=== PATIENT | female | born 1985 | race Caucasian/White ===

== ENCOUNTER → 2017-11-04 09:37 | Outpatient (CLI) | payer OTHER, SELFPAY ==
[2017-11-04 12:09] LABS: Absolute Lymphocyte Count 1.63 X10^3/ul (0.83-4.51); Absolute Neutrophil Count 4.2 X10^3/uL (2.0-7.7); Basophil# 0.03 X10^3/uL; Basophil% 0.5 % (0-1); Eosinophil# 0.13 X10^3/uL; Hematocrit 43.7 % (37-47); Hemoglobin 14.3 g/dl (12.0-15.0); Lymphocyte # 1.63 X10^3/ul (4.0); Lymphocyte % 25.4 % (19-41); Mean Corp Hgb Conc 32.7 g/gl (32-36); Mean Corpuscular Hgb 29.2 pg (27.0-32.0); Mean Corpuscular Volume 89.2 fL (81-99); Mean Platelet Vol. 10.8 fl (6.2-12.0); Monocyte# 0.47 X10^3/uL; Monocyte% 7.3 % (0-10); Neutrophil # 4.15 X10^3/uL (2.7-7.7); Neutrophil % 64.6 % (47-70); Platelet Count 226 K/mm3 (150-450); RBC Distribution Width CV 12.4 % (11.6-14.6); White Blood Count 6.4 K/mm3 (4.4-11.0)
[2017-11-04 12:24] LABS: POSITIVE COUNT NO; POSITIVE DIFFERENTIAL NO; POSITIVE MORPHOLOGY NO
[2017-11-04 12:27] LABS: Erythrocyte Sedimentation Rate 8 mm/hr (0-20)
[2017-11-04 12:56] LABS: ALB/GLOB Ratio 1.1 RATIO (0.9-2.4); AST(SGOT) 27 U/L (15-37); Alanine Aminotransfer ALT/SGPT 38 U/L (13-56); Albumin, Serum 3.8 g/dL (3.2-5.0); Alkaline Phosphatase 75 U/L (45-117); Anion Gap 7 (5-15); BUN 13 mg/dL (7-18); BUN/Creat Ratio 18.2 RATIO (10-20); CRP 4.84 mg/L (0.0-3.0); Calcium,Total 8.8 mg/dL (8.5-10.1); Chloride 107 mmol/L (98-107); Creatinine, Serum 0.71 mg/dL (0.55-1.02); EST Glomerular Filtration Rate 101 mL/min (>60); Est Glom Filt Rate - Afr Amer 122 mL/min (>60); Free T3 2.6 pg/mL (2.18-3.98); Globulin 3.6 g/dL (2.2-4.2); Glucose 89 mg/dL (74-106); Iron 71 ug/dL (50-170); Potassium 4.1 mmol/L (3.5-5.1); Protein, Total 7.4 g/dL (6.4-8.2); Rheumatoid Factor < 10.0 IU/mL (<15); Sodium Level 140 mmol/L (136-145); T4 Free Direct 1.01 ng/dL (0.76-1.46); Thyroid Stim Hormone (TSH) 1.59 uIU/mL (0.358-3.74)
[2017-11-05 07:59] LABS: Thyroid Peroxidase AB 18 IU/mL (0-34)
[2017-11-05 10:29] LABS: Vitamin B12 880 pg/mL (211-911); Vitamin D,25 Hydroxy 16.1 ng/mL (19.95-100.01)
[2017-11-06 16:03] LABS: ANTINUCLEAR ANTIBODIES DIRECT Negative (Negative)
== END ==
PROVIDERS: Family Provider Family Medicine; PCP Family Medicine; Visit Provider Family Medicine
DX: K90.0 Celiac disease (principal); R53.83 Other fatigue
CPT/HCPCS: 36415; 80053; 82306; 82607; 83540; 84439; 84443; 84481; 85025; 85652; 86038; 86140; 86376; 86431

== ENCOUNTER → 2018-01-29 09:27 | Outpatient (CLI) | payer OTHER, SELFPAY ==
[2018-01-29 10:19] LABS: CRP 3.91 mg/L (0.0-3.0)
[2018-01-30 09:02] LABS: Vitamin D,25 Hydroxy 45.3 ng/mL (29.95-100.01)
== END ==
PROVIDERS: Family Provider Family Medicine; PCP Family Medicine; Visit Provider Family Medicine
DX: E55.9 Vitamin D deficiency, unspecified (principal); K90.0 Celiac disease
CPT/HCPCS: 36415; 82306; 86140

== ENCOUNTER → 2018-07-18 11:06 | Outpatient (CLI) | payer OTHER, SELFPAY ==
[2018-07-18 12:43] LABS: Anion Gap 7 (5-15); BUN 9 mg/dL (7-18); BUN/Creat Ratio 12.7 RATIO (10-20); CRP 3.32 mg/L (0.0-3.0); Calcium,Total 8.5 mg/dL (8.5-10.1); Chloride 106 mmol/L (98-107); Cholesterol 173 mg/dL (200); Creatinine, Serum 0.71 mg/dL (0.55-1.02); EST Glomerular Filtration Rate 102 mL/min (>60); Est Glom Filt Rate - Afr Amer 123 mL/min (>60); Glucose 86 mg/dL (74-106); High Density Lipoprotein 53 mg/dL; Potassium 3.8 mmol/L (3.5-5.1); Sodium Level 140 mmol/L (136-145); Triglycerides 69 mg/dL; Very Low Density Lipoprotein 14 mg/dL (5-40)
[2018-07-18 12:51] LABS: Vitamin D,25 Hydroxy 24.4 ng/mL (29.95-100.01)
[2018-07-18 19:11] LABS: Xtra Tube EP Lab EXTRA TUBE
== END ==
PROVIDERS: Family Provider Family Medicine; PCP Family Medicine; Referring Provider Family Medicine; Visit Provider Family Medicine
DX: K90.0 Celiac disease (principal); E66.3 Overweight; E55.9 Vitamin D deficiency, unspecified
CPT/HCPCS: 36415; 80048; 80061; 82306; 86140

== ENCOUNTER → 2018-07-21 10:08 | Outpatient (CLI) | payer OTHER, SELFPAY ==
[2018-07-21 12:47] LABS: T4 Free Direct 1.06 ng/dL (0.76-1.46); Thyroid Stim Hormone (TSH) 1.79 uIU/mL (0.358-3.74)
[2018-07-21 13:03] LABS: Vitamin B12 991 pg/mL (211-911)
[2018-07-22 16:08] LABS: Endomysial Antibody IgA Negative (Negative)
[2018-07-23 12:10] LABS: Deamidated Gliadin IgA 20 units (0-19); Deamidated Gliadin IgG 3 units (0-19); Immunoglobulin A 121 mg/dL (87-352); t-Transglutaminase IgA <2 U/mL (0-3)
[2018-07-24 14:08] LABS: Beef <0.10 kU/L (Class 0); Corn <0.10 kU/L (Class 0); Egg, Whole <0.10 kU/L (Class 0); Milk (Cow) <0.10 kU/L (Class 0); Peanut <0.10 kU/L (Class 0); Pork <0.10 kU/L (Class 0); Soybean <0.10 kU/L (Class 0); Wheat <0.10 kU/L (Class 0)
[2018-07-24 14:14] LABS: Chocolate <0.10 kU/L (Class 0)
== END ==
PROVIDERS: Family Provider Family Medicine; PCP Family Medicine; Visit Provider Family Medicine
DX: K90.0 Celiac disease (principal); R14.0 Abdominal distension (gaseous); R53.83 Other fatigue
CPT/HCPCS: 36415; 82533; 82607; 82784; 83516; 84439; 84443; 86003; 86005; 86255

== ENCOUNTER → 2018-08-13 11:50 | Outpatient (CLI) | payer OTHER, SELFPAY ==
[2018-08-13 15:07] LABS: Chlamydia Trachomatis by PCR Negative (Negative); Neisserai gonorrhoeae by PCR Negative (Negative); Probe Check PASS; Sample Adequacy Control PASS; Specimen Processing Control PASS
[2018-08-16 10:21] LABS: HPV Reflexed? NOT INDICATED
--- OUTSIDE RECORDS SUMMARY | 2018-10-08 15:12 | XMS RPT_ITS ---
:1985 Author Organization OHIP Care Team Providers Name Role Phone Misha Wasserman Attending Unavailable Juan C Marcus Primary Care Unavailable Julisa Hinton Attending Unavailable Ranney, Daviser Primary Care Unavailable Ranney, Daviser Attending Unavailable Ranney, Christopher Primary Care Unavailable Ranney, Christmelbaer Attending Unavailable Ranney, Christopher Primary Care Unavailable Ranney, Christopher Attending Unavailable Ranney, Christopher Primary Care Unavailable Ranney, Christmelbaer Referring Unavailable Ranney, Christopher Attending Unavailable Ranney, Christopher Primary Care Unavailable Misha Wasserman Attending Unavailable Ranney, Christopher Primary Care Unavailable PROBLEMS PROBLEMS DATE TYPE CONDITION / CODE ATTENDING STATUS SOURCE 07/18/2018 Unknown E66.3 - Ranney, Active [place] Overweight / [facility] E66.3(ICD-10) Hospital Repository 07/18/2018 Unknown K90.0 - Celiac Ranney, Active [place] disease / [facility] K90.0(ICD-10) Hospital Repository 07/18/2018 Unknown E55.9 - Vitamin D Ranney, Active [place] deficiency, [facility] unspecified / Hospital E55.9(ICD-10) Repository 05/08/2018 Active Encounter for NA Active [facility] examination for [facility] normal comparison Repository and control in clinical research program / Z00.6(ICD-10) PROCEDURES PROCEDURES No Procedure Records FoundRESULTS RESULTS URINE DRUG SCREEN Collected: 08/27/2018 Status: F Source: [place] (VISTA) 11:03 AM [facility] REPOSITORY Order Comment: List of Drugs Taken or Suspected? U TYPE CODE TESTS RESULT OUT OF RANGE REFERENCE UNITS LAB L505.0075 TO BE Normal CONFIRMED Result Comment: CONFIRMATORY TESTING FOR ALL POSITIVE URINE DRUG SCREEN RESULTS WILL ONLY BE SENT OUT UPON PHYSICIAN ORDER. VISTA Urine Drug Screen methods provide only preliminary analytical test results. A more specific alternate chemical method must be used in order to obtain a confirmed analytical result. Gas chromatography/mass spectrometery (GC/MS) is the preferred confirmatory method. Clinical consideration and professional judgement should be applied to any drug of abuse test result, particularly when preliminary positive results are used. URINE TCA TESTING MUST BE ORDERED SEPARATELY. USE TEST MNEMONIC: [facility] LAB L505.5005 VISTA UDS PH 6 Normal LAB L505.5015 <1000 ng/mL AMPHETAMINES Normal NEGATIVE LAB L505.5025 < 200 ng/mL BARBITIURATES Normal NEGATIVE LAB L505.5035 < 200 ng/mL BENZODIAZIPINE Normal NEGATIVE LAB L505.5045 < 300 ng/mL COCAINE Normal NEGATIVE LAB L505.5055 < 500 ng/mL ECSTACY Normal NEGATIVE LAB L505.5065 < 300 ng/mL METHADONE Normal NEGATIVE LAB L505.5075 < 300 ng/mL OPIATES Normal NEGATIVE LAB L505.5085 < 25 ng/mL PCP Normal NEGATIVE LAB L505.5095 < 50 ng/mL THC Normal NEGATIVE Performed By: #### L505.5000, L505.6240 #### [facility] [address] [place], [address] NICOTINE URINE DRUG Collected: 08/27/2018 Status: F Source: [place] SCREEN 11:03 AM [facility] REPOSIT[facility] Order Comment: List of Drugs Taken or Suspected? U TYPE CODE TESTS RESULT OUT OF RANGE REFERENCE UNITS LAB L505.6250 TO BE Normal CONFIRMED Result Comment: CONFIRMATORY TESTING FOR ALL POSITIVE URINE DRUG SCREEN RESULTS WILL ONLY BE SENT OUT UPON PHYSICIAN ORDER. The results of Urine Drug Screen methods provide only preliminary analytical test results. A more specific alternate chemical method must be used in order to obtain a confirmed analytical result. Gas chromatography/mass spectrometery (GC/MS) is the preferred confirmatory method. Clinical consideration and professional judgement should be applied to any drug of abuse test result, particularly when preliminary positive results are used. LAB L505.6270 <200 ng/mL Normal COT DRG Negative SCREEN Result Comment: Cotinine is the first-stage metabolite of Nicotine. Performed By: #### L505.5000, L505.6240 #### [facility] [address] [place], [address] CBC W/DIFF, AUTOMATED Collected: 08/27/2018 Status: F Source: [place] 11:03 AM [facility] REPOSITORY TYPE CODE TESTS RESULT OUT OF RANGE REFERENCE UNITS LAB L100.1000 4.4-11.0 K/mm3 High WBC 11.1 LAB L100.1200 4.2-5.4 M/mm3 Normal RBC 4.66 LAB L100.1300 12.0-15.0 g/dl Normal HGB 13.9 LAB L100.1400 37-47 % Normal HCT 41.1 LAB L100.1500 81-99 fL Normal MCV 88.2 LAB L100.1600 27.0-32.0 pg Normal MCH 29.8 LAB L100.1700 32-36 g/gl Normal MCHC 33.8 LAB L100.1810 11.6-14.6 % Normal RDW CV 12.0 LAB L100.1820 35.1-43.9 fl Normal RDW SD 38.1 LAB L100.1900 150-450 K/mm3 Normal PLT 259 LAB L100.2000 6.2-12.0 fl Normal MPV 10.7 LAB L100.2100 47-70 % High NEUT% 76.9 LAB L100.2200 19-41 % Low LY% 15.1 LAB L100.2300 0-10 % Normal MONO% 7.2 LAB L100.2400 0-5 % Normal EO% 0.6 LAB L100.2500 0-1 % Normal BASO% 0.1 LAB L100.2550 0.0-0.9 % Normal IM GRAN % 0.100 Result Comment: IG% - Immature Granulocytes (promyelocytes, myelocytes and metamyelocytes) > 1% indicates that a LEFT SHIFT is Present. LAB L100.2620 2.0-7.7 X10 3/uL High Absolute Neut 8.5 LAB L100.2720 0.83-4.51 X10 3/ul Normal Absolute Lymph 1.67 Performed By: #### L100.0100 #### [facility] [address] [facility] [place], [address] URINALYSIS, ROUTINE Collected: 08/27/2018 Status: F Source: [place] (DIPSTICK) 11:03 AM [facility] REPOSIT[facility] Order Comment: How was Urine Obtained? CLEAN CATCH TYPE CODE TESTS RESULT OUT OF RANGE REFERENCE UNITS LAB L400.3000 Yellow COLOR Normal Yellow LAB L400.3050 Clear Normal CLARITY Sl. Cloudy LAB L400.3200 Normal mg/dl Normal GLUCOSE, UR Normal LAB L400.3300 Negative mg/dL Normal BILIRUBIN URINE Negative LAB L400.3400 Negative mg/dl Normal KETONE UR Negative LAB L400.3465 1.002-1.030 Normal SP.GR. DIPSTX 1.020 LAB L400.3550 5.0 - 8.0 pH UR Normal 6.5 LAB L400.3600 Negative mg/dl High PROT 15 DIPSTX LAB L400.3700 Normal mg/dl High 1 UROBILI LAB L400.3750 Negative Normal NITRITE UR Negative LAB L400.3780 Negative /ul Normal OCCULT BLOOD-UR Negative LAB L400.3800 Negative /ul High LEUK ESTERASE 100 Performed By: #### L400.2010 #### [facility] [address] [place], [address] THYROID STIM HORMONE Collected: 08/27/2018 Status: F Source: [place] (TSH) 11:03 AM [facility] REPOSITORY TYPE CODE TESTS RESULT OUT OF RANGE REFERENCE UNITS LAB L501.9520 0.358-3.74 uIU/mL Normal TSH 0.80 Performed By: #### L501.9520 #### [facility] [address] [facility] [place], [address] RUBELLA IGG Collected: 08/27/2018 Status: F Source: [place] 11:03 AM [facility] REPOSIT[facility] TYPE CODE TESTS RESULT OUT OF RANGE REFERENCE UNITS LAB L509.4000 IU/mL Normal Rubella IgG > 500.0 Result Comment: Antibody results Interpretation of Immune Status < 5 IU/ml Presumed Non-immune 5 - < 10 IU/ml Equivocal > or = 10 IU/ml Presumed Immune Performed By: #### L509.4000, L3890.6005 #### [facility] [address] [place], [place], [address] HIV - [facility] Collected: 08/27/2018 Status: F Source: [place] 11:03 AM [facility] REPOSITORY TYPE CODE TESTS RESULT OUT OF RANGE REFERENCE UNITS LAB L3890.6005 Nonreactive Normal HIV - [facility] Non-Reactive Performed By: #### L509.4000, L3890.6005 #### [facility] [address] [place], [place], [address] T AND S-NO Collected: 08/27/2018 Status: F Source: [place] CHARGE W/PNP 11:03 AM [facility] REPOSIT[facility] Order Comment: Reason for Type AND Screen/Red Cells: Surgery? N TYPE CODE TESTS RESULT OUT OF RANGE REFERENCE UNITS LAB B10.0800 O Normal BLOOD NEGATIVE TYPE GEL LAB B100.4050 Normal Ab SCREEN NEGATIVE GEL Performed By: #### B100.7550 #### [facility] [address] [place], [place], [address] RPR Collected: 08/27/2018 Status: F Source: [place] 11:03 AM [facility]POS[facility] TYPE CODE TESTS RESULT OUT OF REFERENCE UNITS RANGE LAB L700.5100 NONREACTIVE Normal RPR NONREACTIVE Performed By: #### L700.5100 #### [facility] [address] [place], [place], [address] HEPATITIS B SURFACE Collected: 08/27/2018 Status: F Source: [place] AG 11:03 AM [facility] REPOSIT[facility] TYPE CODE TESTS RESULT OUT OF RANGE REFERENCE UNITS LAB L3100.0400 Negative Normal HB Negative SURF AG Result Comment: Performed at: [facility] [address] [id number] Metal Door Assembler: Lee Loja PhD, Phone: [phone] Performed By: #### L3100.0390, L3100.0625, L3400.1610 #### [facility] (refer to report for specific site) refer to report for address and phone number HEPATITIS C ANTIBODIES Collected: 08/27/2018 Status: F Source: [place] 11:03 AM [facility] REPOSIT[facility] TYPE CODE TESTS RESULT OUT OF RANGE REFERENCE UNITS LAB L3100.0650 0.0-0.9 s/co ratio Normal HEP C AB <0.1 Result Comment: Negative: < 0.8 Indeterminate: 0.8 - 0.9 Positive: > 0.9 The CDC recommends that a positive HCV antibody result be followed up with a HCV Nucleic Acid Amplification test (888269). Performed By: #### L3100.0390, L3100.0625, L3400.1610 #### [facility] (refer to report for specific site) refer to report for address and phone number HSV 1 AND 2 IGG Collected: 08/27/2018 Status: F Source: [place] 11:03 AM [facility] REPOSIT[facility] TYPE CODE TESTS RESULT OUT OF RANGE REFERENCE UNITS LAB L3400.1620 0.00-0.90 index Normal HSV 1 IgG < 0.91 Result Comment: Negative <0.91 Equivocal 0.91 - 1.09 Positive >1.09 Note: Negative indicates no antibodies detected to HSV-1. Equivocal may suggest early infection. If clinically appropriate, retest at later date. Positive indicates antibodies detected to HSV-1. LAB L3400.1630 0.00-0.90 index Normal < HSV 2 IgG 0.91 Result Comment: Negative <0.91 Equivocal 0.91 - 1.09 Positive >1.09 Note: Negative indicates no antibodies detected to HSV-2. Equivocal may suggest early infection. If clinically appropriate, retest at later date. Positive indicates antibodies detected to HSV-2. Performed By: #### L3100.0390, L3100.0625, L3400.1610 #### [facility] (refer to report for specific site) refer to report for address and phone number CT/NG WCH BY PCR Collected: 08/13/2018 Status: F Source: [place] 10:10 AM [facility] REPOSIT[facility] TYPE CODE TESTS RESULT OUT OF RANGE REFERENCE UNITS LAB L8200.2100 Negative Normal Chlam Negative Trac PCR LAB L8200.2200 Negative Normal NG by Negative PCR Performed By: #### L8200.2000 #### [facility] [address] [place], [address] PAP I-G W/RFX HRHPV Collected: 08/13/2018 Status: F Source: [place] 10:10 AM [facility] REPOS[facility] Order Comment: CYTOLOGY INFORMATION: - CLINICAL INFORMATION: - DATE LMP/MENOPAUSE: 06/23/18 LMP - COLLECTION VIAL: Thin Prep Vial - BRAZER CONTROLLED ATMOSPHERIC FURNACE SOURCE: CERVICAL/ENDOCERVICAL - COLLECTION TECHNIQUE: BRUSH/SPATULA Specimen Comment: [id number] Specimen Comment: Source.............Cervix;Endocervix Specimen Comment: LMP / Prev Treat...SUE=[id number] Specimen Comment: No. of containers..01 ThinPrep Vial TYPE CODE TESTS RESULT OUT OF RANGE REFERENCE UNITS LAB L7400.0800 . Normal DIAGN Comment Result Comment: NEGATIVE FOR INTRAEPITHELIAL LESION AND MALIGNANCY. LAB L7400.0900 . Normal ADEQ Comment Result Comment: Satisfactory for evaluation. Endocervical and/or squamous metaplastic cells (endocervical component) are present. LAB L7400.1400 . Normal PERFORM Comment Result Comment: Johanny Davis, Contact Printer Dry Film (ASCP) LAB L7400.2575 . Normal TEST METHOD Comment Result Comment: This liquid based ThinPrep(R) pap test was screened with the use of an image guided system. LAB L7400.2600 . Normal . COMM LAB L7400.2700 . Normal PAPSMR Comment Result Comment: The Pap smear is a screening test designed to aid in the detection of premalignant and malignant conditions of the uterine cervix. It is not a diagnostic procedure and should not be used as the sole means of detecting cervical cancer. Both false-positive and false-negative reports do occur. LAB L7400.2800 . Normal HPV RFLX Comment Result Comment: The HPV DNA reflex criteria were not met with this specimen result therefore, no HPV testing was performed. Performed at: [address] [id number] Metal Door Assembler: Apryl Gray MD, Phone: [phone] Performed By: #### L7400.0350 #### [facility] (refer to report for specific site) refer to report for address and phone number THYROID STIM HORMONE Collected: 07/21/2018 Status: F Source: [place] (TSH) 10:09 AM [facility] REPOSIT[facility] TYPE CODE TESTS RESULT OUT OF RANGE REFERENCE UNITS LAB L501.9520 0.358-3.74 uIU/mL Normal TSH 1.79 Performed By: #### L501.9520, L506.0400, L503.0105, L509.6000 #### [facility] [address] [facility] [place], [place], [address] #### L3410.2350, L5500.0400 #### [facility] (refer to report for specific site) refer to report for address and phone number T4 FREE DIRECT Collected: 07/21/2018 Status: F Source: [place] 10:09 AM [facility] REPOSIT[facility] TYPE CODE TESTS RESULT OUT OF RANGE REFERENCE UNITS LAB L506.0400 0.76-1.46 ng/dL Normal T4 FREE 1.06 DIRECT Performed By: #### L501.9520, L506.0400, L503.0105, L509.6000 #### [facility] [address] [place], [address] #### L3410.2350, L5500.0400 #### [facility] (refer to report for specific site) refer to report for address and phone number VITAMIN B12 Collected: 07/21/2018 Status: F Source: [place] 10:09 AM [facility] REPOSIT[facility] TYPE CODE TESTS RESULT OUT OF REFERENCE UNITS RANGE LAB L503.0105 211-911 pg/mL High Vitamin B12 991 Performed By: #### L501.9520, L506.0400, L503.0105, L509.6000 #### [facility] [address] [place], [address] #### L3410.2350, L5500.0400 #### [facility] (refer to report for specific site) refer to report for address and phone number CORTISOL SERUM Collected: 07/21/2018 Status: F Source: [place] 10:09 AM [facility] REPOSIT[facility] TYPE CODE TESTS RESULT OUT OF RANGE REFERENCE UNITS LAB L509.6000 3.09-22.40 ug/dL Normal CORTISOL 8.10 Result Comment: Adult (AM) 4.30 - 22.40 ug/dL Adult (PM) 3.09 - 16.66 ug/dL Performed By: #### L501.9520, L506.0400, L503.0105, L509.6000 #### [facility] [address] [place], [place], [address] #### L3410.2350, L5500.0400 #### [facility] (refer to report for specific site) refer to report for address and phone number CELIAC AB,COMPREHENSIVE Collected: 07/21/2018 Status: F Source: [place] 10:09 AM [facility] REPOSIT[facility] TYPE CODE TESTS RESULT OUT OF REFERENCE UNITS RANGE LAB L3410.2500 0-19 units ANTIGLIADIN High IGA 20 Result Comment: Negative 0 - 19 Weak Positive 20 - 30 Moderate to Strong Positive >30 LAB L3410.2600 0-19 units ANTIGLIADIN Normal IGG 3 Result Comment: Negative 0 - 19 Weak Positive 20 - 30 Moderate to Strong Positive >30 LAB L3410.2650 87-352 mg/dL Normal IMMUNO A 121 Result Comment: Performed at: - [facility] [address] [id number] Metal Door Assembler: Lee oLja PhD, Phone: [phone] LAB L3410.2901 0-3 U/mL Normal tTG IGA <2 Result Comment: Negative 0 - 3 Weak Positive 4 - 10 Positive >10 Tissue Transglutaminase (tTG) has been identified as the endomysial antigen. Studies have demonstr- ated that endomysial IgA antibodies have over 99% specificity for gluten sensitive enteropathy. LAB L3410.2950 0-5 U/mL Normal tTG IGG <2 Result Comment: Negative 0 - 5 Weak Positive 6 - 9 Positive >9 LAB L3410.2975 Negative Normal ENDOMYSIAL IGA Negative Performed By: #### L501.9520, L506.0400, L503.0105, L509.6000 #### [facility] [address] [place], [address] #### L3410.2350, L5500.0400 #### [facility] (refer to report for specific site) refer to report for address and phone number ALLERGEN, RAST FOOD Collected: 07/21/2018 Status: F Source: [place] PROFILE 10:09 AM [facility] REPOSITORY TYPE CODE TESTS RESULT OUT OF RANGE REFERENCE UNITS LAB L5500.3002 Class 0 kU/L MILK Normal (COW) <0.10 LAB L5500.3004 Class 0 kU/L WHEAT Normal <0.10 LAB L5500.3008 Class 0 kU/L CORN Normal <0.10 LAB L5500.3013 Class 0 kU/L Normal PEANUT <0.10 LAB L5500.3014 Class 0 kU/L Normal SOYBEAN <0.10 LAB L5500.3026 Class 0 kU/L PORK Normal <0.10 LAB L5500.3027 Class 0 kU/L BEEF Normal <0.10 LAB L5500.3052 Class 0 kU/L Normal CHOCOLATE <0.10 Result Comment: Performed at: [facility] [address] [id number] Metal Door Assembler: Ginger Ramos MD, Phone: [phone] LAB L5673.1794 Class 0 kU/L Normal EGG, <0.10 WHOLE LAB L5500.7424 . Normal Negative FISH/SHELL MIX Result Comment: Allergens in this mix are: Blue mussel Fish [place] Shrimp Tuna LAB L5500.0022 . Normal RAST COMMENT Comment Result Comment: Levels of Specific IgE Class Description of Class ----- < 0.10 0 Negative 0.10 - 0.31 0/I Equivocal/Low 0.32 - 0.55 I Low 0.56 - 1.40 II Moderate 1.41 - 3.90 III High 3.91 - 19.00 IV Very High 19.01 - 100.00 V Very High >100.00 Very High Performed By: #### L501.9520, L506.0400, L503.0105, L509.6000 #### [facility] [address] [facility] [place], [address] #### L3410.2350, L5500.0400 #### [facility] (refer to report for specific site) refer to report for address and phone number BASIC METABOLIC Collected: 07/18/2018 Status: F Source: [place] PROFILE ([facility]) 11:10 AM [facility]POS[facility] Order Comment: Order Date: 01/30/18 Order Info: 0667-1 - BMP Order Info: 75533-5 - LIPID TYPE CODE TESTS RESULT OUT OF RANGE REFERENCE UNITS LAB L501.0100 74-106 mg/dL Normal GLU 86 Result Comment: Please note revised GLUCOSE reference range effective 2017. LAB L501.1000 7-18 mg/dL Normal BUN 9 LAB L501.1100 0.55-1.02 mg/dL Normal CREAT,SERUM 0.71 Result Comment: The validity of the calculated GFR AND GFRAA in patients over 70 years has not been determined. Clinical correlation is essential. LAB L501.1110 >60 mL/min Normal EST GFR 102 Result Comment: Non- GFR Calc LAB L501.1115 >60 mL/min Normal EST GFR - AA 123 Result Comment: GFR Calc LAB L501.1300 10-20 RATIO Normal BUN/CRE 12.7 LAB L501.2200 8.5-10.1 mg/dL CA Normal 8.5 LAB L501.5300 136-145 mmol/L NA Normal 140 LAB L501.5600 3.5-5.1 mmol/L K Normal 3.8 LAB L501.5900 98-107 mmol/L CL Normal 106 LAB L501.6100 21.0-32.0 mmol/L Normal CO2 27.0 LAB L501.6200 5-15 Normal GAP 7 Performed By: #### L500.2500, L500.4100, L506.1000 #### [facility] [address] [place], [place], [id number] LIPID PROFILE Collected: 07/18/2018 Status: F Source: [place] 11:10 AM [facility] Order Comment: Order Date: 01/30/18 Order Info: 0667-1 - BMP Order Info: 95336-9 - LIPID TYPE CODE TESTS RESULT OUT OF RANGE REFERENCE UNITS LAB L501.4900 200 mg/dL Normal CHOL 173 Result Comment: <200 mg/dL Desirable 200-240 mg/dL Borderline >240 mg/dL High Risk LAB L501.5000 mg/dL Normal TRIG 69 Result Comment: The drugs N-Acetylcysteine and Metamizole may falsely depress this assay. Serum Triglycerides Reference Interval Normal <150 mg/dL Borderline high 150 - 199 mg/dL High 200 - 499 mg/dL Very High > or = 500 mg/dL LAB L501.6400 mg/dL Normal HDL 53 Result Comment: The drugs N-Acetylcysteine and Metamizole may falsely depress this assay. Reference Range HDL <40 mg/dL Low HDL Cholesterol HDL >or= 60 mg/dL High HDL Cholesterol LAB L501.6500 0-130 mg/dL Normal LDL 106 LAB L501.6600 5-40 mg/dL Normal VLDL 14 Performed By: #### L500.2500, L500.4100, L506.1000 #### [facility] [address] [place], [place], [id number] VITAMIN D,25 HYDROXY Collected: 07/18/2018 Status: F Source: [place] 11:10 AM [facility] Order Comment: Order Date: 01/30/18 Order Info: 42955-7 - VITD25 TYPE CODE TESTS RESULT OUT OF REFERENCE UNITS RANGE LAB L506.1000 29.95-100.01 ng/mL Low Vitamin D 24.4 25-OH Result Comment: Vitamin D 25(OH) Status Range Deficiency <20 ng/mL (50nmol/L) Insuffciency 20 - 30 ng/mL (50 - 75 nmol/L) Sufficiency 30 - 100 ng/mL (75 - 250 nmol/L) Toxicity >100 ng/mL (>250 nmol/L) Performed By: #### L500.2500, L500.4100, L506.1000 #### [facility] [address] [place], [address] CRP Collected: 07/18/2018 Status: F Source: [place] 11:10 AM [facility] Order Comment: Order Date: 01/30/18 Order Info: 0667-1 - BMP Order Info: 61284-9 - LIPID TYPE CODE TESTS RESULT OUT OF RANGE REFERENCE UNITS LAB L501.6710 0.0-3.0 mg/L High 3.32 C-REACTIVE PROT Result Comment: C-Reactive Protein (CRP) provides useful information for the diagnosis, therapy and monitoring of inflammatory processes and associated diseases. For the evaluation of Relative Risk for Cardiovascular Disease, a High Sensitivity CRP (HSCRP) should be ordered. Performed By: #### L501.6710 #### [facility] [address] [place], [address] PROGRESS Observed: 05/08/2018 Status: COMPLETED Source: [place] 5:18 PM [facility] REPOSITORY HNO ID: [id number] Author: Naseem Brewer LPN Service: (none) Author Type: LICENSED NURSE Type: Progress Notes Filed: 05/08/2018 5:19 PM Note Text: (patient name) is a (age) year old (male/female) patient here for the Dilated Cardiomyopathy Precision Medicine Study (DCM) MRN: x 03/17/2018 IRB #: [id number] Dilated Cardiomyopathy Precision Medicine Study (DCM) Program Development Manager: Dr. Thaddeus Kendall Tool Specialist: Aubrey Brewer 1. Program Development Manager and/or Research Nurse explained the protocol to the subject? YES 2. Risks, benefits, alternative procedures explained? YES 3. Reviewed HIPPA disclosure information with the subject? YES 4. Follow-up requirements explained? YES 5. Reviewed research related injuries and cost with subject? YES 6. Subject asked appropriate questions and answers provided to the subject? YES 7. Subject read and verbally understands informed consent? YES 8. Subject was given a copy of the signed informed consent? YES 9. Family present at the time of the consent: Subject, sister and aunt 10. Subject ID Band in place? YES Consent signed date/time 05/08/2018 @ 1010 by: Dodie Jamil of [facility] If minor child, was both the parent and child signatures obtained: TIARA Brewer LPN 11. Study participant group: Family member 12. Confirm interest in family based genetics? YES 13. Enrollment Tracking form completed? YES 14. Medical Records Query completed? YES 15. Baseline Patient Interview Questionnaire completed? YES via phone with [facility] 16. Baseline Life and Family Survey completed? YES 17. Medical Release form/PHI signed? YES 18. If child obtained parents signature: TIARA 19. DCM brochure provided? YES 20. Cardiovascular Screening performed? YES 21. Did participant agree to have sample and information stored for potential use in genetic research? Yes 22. Did participant agree to being contacted regarding future use of samples and information? Yes 23. Blood Drawn as per protocol? Yes Time: 1127 Butterfly used in right antecubital area. Blood drawn with vacutainer and labs drawn per protocol. Butterfly removed after blood draw and secured with sterile gauze. Patient tolerated procedure well. Naseem Brewer LPN CNOV Observed: 05/08/2018 Status: COMPLETED Source: [place] 10:00 AM [facility] REPOSITORY Office Visit (GCRCMN) RAFIA ELLISON ([id number]) 1985 F Date Time Provider Department 05/08/18 10:00 AM LAB [facility] MA[facility] M51 GCMN During your visit today, we recorded the following information about you: Naseem Brewer LPN, ASHLYN 05/08/2018 5:19 PM Signed (patient name) is a (age) year old (male/female) patient here for the Dilated Cardiomyopathy Precision Medicine Study (DCM) MRN: x 03/17/2018 IRB #: [id number] Dilated Cardiomyopathy Precision Medicine Study (DCM) Program Development Manager: Dr. Thaddeus Kendall Tool Specialist: Aubrey Brewer 1. Program Development Manager and/or Research Nurse explained the protocol to the subject? YES 2. Risks, benefits, alternative procedures explained? YES 3. Reviewed HIPPA disclosure information with the subject? YES 4. Follow-up requirements explained? YES 5. Reviewed research related injuries and cost with subject? YES 6. Subject asked appropriate questions and answers provided to the subject? YES 7. Subject read and verbally understands informed consent? YES 8. Subject was given a copy of the signed informed consent? YES 9. Family present at the time of the consent: Subject, sister and aunt 10. Subject ID Band in place? YES Consent signed date/time 05/08/2018 @ 1010 by: Dodie Jamil of [facility] If minor child, was both the parent and child signatures obtained: TIARA Brewer LPN 11. Study participant group: Family member 12. Confirm interest in family based genetics? YES 13. Enrollment Tracking form completed? YES 14. Medical Records Query completed? YES 15. Baseline Patient Interview Questionnaire completed? YES via phone with [facility] 16. Baseline Life and Family Survey completed? YES 17. Medical Release form/PHI signed? YES 18. If child obtained parents signature: TIARA 19. DCM brochure provided? YES 20. Cardiovascular Screening performed? YES 21. Did participant agree to have sample and information stored for potential use in genetic research? Yes 22. Did participant agree to being contacted regarding future use of samples and information? Yes 23. Blood Drawn as per protocol? Yes Time: 1127 Butterfly used in right antecubital area. Blood drawn with vacutainer and labs drawn per protocol. Butterfly removed after blood draw and secured with sterile gauze. Patient tolerated procedure well. Naseem Brewer LPN Referring Provider: SELF [200] Allergies As of Date: 05/08/2018 Noted Allergy Reaction METRONIDAZOLE 12/26/2009 Comments: Pateint c/o fever,sore throat,cramping,hot flashes,fatigue,dizziness,dark urine Date Reviewed: 12/18/2015 Reviewed by: Makenna Mays - Fully Assessed Reason for Visit: Research [[id number]] Cmt: [phone] [facility] Primary Visit Diagnosis:Exam for clinical research [Z00.6] Prescriptions as of 05/08/2018 Sig: FLUTICASONE 50 MCG/ACTUATION * Use 1-2 Sprays in each nostri* ERGOCALCIFEROL (VITAMIN D2) 5* Take 1 capsule twice weekly LORATADINE-PSEUDOEPHEDRINE ER* Take 1 tablet by mouth once d* AMOXICILLIN 875 MG-POTASSIUM * Take 1 tablet by mouth every * BENZOYL PEROXIDE 10 % TOPICAL* Apply to face and chest at ni* FLUTICASONE 0.05 % TOPICAL CR* Apply to dry itchy skin once * * MULTIVITAMIN TABLET Take one(1) tablet daily. Problem List As Of Date 05/08/2018 Noted Resolved Anorexia nervosa [F50.00] INVALID FOR*12/18/2012 Tobacco use disorder [F17.200] INVALID FOR*12/18/2012 Depressive disorder, not elsewhere classified [*INVALID FOR*12/18/2012 Supervision of Normal First [Z34.00] INVALID FOR*06/23/2009 Other chronic cystitis [N30.20] INVALID FOR*12/18/2012 History of abnormal Pap smear [Z87.898] INVALID FOR* ASCUS (atypical squamous cells of undetermined *INVALID FOR* History of bilateral saline breast implants [Z9*INVALID FOR* Acne [L70.9] INVALID FOR* Previous section [Z98.891] INVALID FOR* Encounter Status:Closed by NASEEM BREWER on 05/08/18 CRP Collected: 01/29/2018 Status: F Source: [place] 9:28 AM [facility] REPOSITORY TYPE CODE TESTS RESULT OUT OF RANGE REFERENCE UNITS LAB L501.6710 0.0-3.0 mg/L High 3.91 C-REACTIVE PROT Result Comment: C-Reactive Protein (CRP) provides useful information for the diagnosis, therapy and monitoring of inflammatory processes and associated diseases. For the evaluation of Relative Risk for Cardiovascular Disease, a High Sensitivity CRP (HSCRP) should be ordered. Performed By: #### L501.6710 #### [facility] [address] [place], [address] VITAMIN D,25 HYDROXY Collected: 01/29/2018 Status: F Source: [place] 9:28 AM [facility] REPOSITORY Order Comment: Order Date: 01/29/18 Order Info: 18581-0 - VITD25 TYPE CODE TESTS RESULT OUT OF RANGE REFERENCE UNITS LAB L506.1000 29.95-100.01 ng/mL Normal Vitamin D 45.3 25-OH Result Comment: Vitamin D 25(OH) Status Range Deficiency <20 ng/mL (50nmol/L) Insuffciency 20 - 30 ng/mL (50 - 75 nmol/L) Sufficiency 30 - 100 ng/mL (75 - 250 nmol/L) Toxicity >100 ng/mL (>250 nmol/L) Performed By: #### L506.1000 #### [facility] [address] [place], [address] CBC W/DIFF, AUTOMATED Collected: 11/04/2017 Status: F Source: [place] 9:40 AM [facility] REPOSITORY Order Comment: Order Date: 11/04/17 Order Info: 0184-1 - CBCD Order Info: 55413-6 - SED TYPE CODE TESTS RESULT OUT OF RANGE REFERENCE UNITS LAB L100.1000 4.4-11.0 K/mm3 Normal WBC 6.4 LAB L100.1200 4.2-5.4 M/mm3 Normal RBC 4.90 LAB L100.1300 12.0-15.0 g/dl Normal HGB 14.3 LAB L100.1400 37-47 % Normal HCT 43.7 LAB L100.1500 81-99 fL Normal MCV 89.2 LAB L100.1600 27.0-32.0 pg Normal MCH 29.2 LAB L100.1700 32-36 g/gl Normal MCHC 32.7 LAB L100.1810 11.6-14.6 % Normal RDW CV 12.4 LAB L100.1820 35.1-43.9 fl Normal RDW SD 40.0 LAB L100.1900 150-450 K/mm3 Normal PLT 226 LAB L100.2000 6.2-12.0 fl Normal MPV 10.8 LAB L100.2100 47-70 % Normal NEUT% 64.6 LAB L100.2200 19-41 % Normal LY% 25.4 LAB L100.2300 0-10 % Normal MONO% 7.3 LAB L100.2400 0-5 % Normal EO% 2.0 LAB L100.2500 0-1 % Normal BASO% 0.5 LAB L100.2550 0.0-0.9 % Normal IM GRAN % 0.200 Result Comment: IG% - Immature Granulocytes (promyelocytes, myelocytes and metamyelocytes) > 1% indicates that a LEFT SHIFT is Present. LAB L100.2620 2.0-7.7 X10 3/uL Normal Absolute Neut 4.2 LAB L100.2720 0.83-4.51 X10 3/ul Normal Absolute Lymph 1.63 Performed By: #### L100.0100, L101.9900, L500.4050, L501.35774, L501.9520, L503.6150, L505.7010, L506.0400, L503.0105, L506.1000 #### [facility] [address] [facility] [place], [address] #### L3100.5475 #### [facility] (refer to report for specific site) refer to report for address and phone number ERYTHROCYTE SED RATE Collected: 11/04/2017 Status: F Source: [place] 9:40 AM [facility] REPOSITORY Order Comment: Order Date: 11/04/17 Order Info: 0184-1 - CBCD Order Info: 89705-7 - SED TYPE CODE TESTS RESULT OUT OF RANGE REFERENCE UNITS LAB L102.0000 0-20 mm/hr Normal SED RATE 8 Performed By: #### L100.0100, L101.9900, L500.4050, L501.59298, L501.9520, L503.6150, L505.7010, L506.0400, L503.0105, L506.1000 #### [facility] [address] [facility] [place], [address] #### L3100.5475 #### [facility] (refer to report for specific site) refer to report for address and phone number COMPREHENSIVE METABOLIC Collected: 11/04/2017 Status: F Source: [place] KING 9:40 AM [facility] REPOSITORY Order Comment: Order Date: 11/04/17 Order Info: 0786-1 - CMP Order Info: 3051-0 - T3F Order Info: 3016-3 - TSH Order Info: 2498-4 - FE Order Info: 24450-0 - RA Order Info: 3024-7 - T4F TYPE CODE TESTS RESULT OUT OF RANGE REFERENCE UNITS LAB L501.0100 74-106 mg/dL Normal GLU 89 Result Comment: Please note revised GLUCOSE reference range effective 2017. LAB L501.1000 7-18 mg/dL Normal BUN 13 LAB L501.1100 0.55-1.02 mg/dL Normal CREAT,SERUM 0.71 Result Comment: The validity of the calculated GFR AND GFRAA in patients over 70 years has not been determined. Clinical correlation is essential. LAB L501.1110 >60 mL/min Normal EST GFR 101 Result Comment: Non- GFR Calc LAB L501.1115 >60 mL/min Normal EST GFR - AA 122 Result Comment: GFR Calc LAB L501.1300 10-20 RATIO Normal BUN/CRE 18.2 LAB L501.1500 6.4-8.2 g/dL T Normal PROT 7.4 LAB L501.1800 3.2-5.0 g/dL Normal ALB 3.8 LAB L501.1950 2.2-4.2 g/dL Normal GLOB 3.6 LAB L501.2000 0.9-2.4 RATIO Normal A/G 1.1 LAB L501.2200 8.5-10.1 mg/dL CA Normal 8.8 LAB L501.4100 15-37 U/L Normal AST 27 LAB L501.4305 45-117 U/L Normal ALK P 75 LAB L501.4405 13-56 U/L Normal ALT 38 Result Comment: Please note revised ALT reference range effective 2017. LAB L501.4600 0.20-1.00 mg/dL Normal T BILI 0.80 LAB L501.5300 136-145 mmol/L Normal NA 140 LAB L501.5600 3.5-5.1 mmol/L Normal K 4.1 LAB L501.5900 98-107 mmol/L Normal CL 107 LAB L501.6100 21.0-32.0 mmol/L Normal CO2 26.0 LAB L501.6200 5-15 Normal GAP 7 Performed By: #### L100.0100, L101.9900, L500.4050, L501.73675, L501.9520, L503.6150, L505.7010, L506.0400, L503.0105, L506.1000 #### [facility] [address] [facility] [place], [place], [id number] #### L3100.5475 #### [facility] (refer to report for specific site) refer to report for address and phone number FREE T3 Collected: 11/04/2017 Status: F Source: [place] 9:40 AM [facility] REPOSITORY Order Comment: Order Date: 11/04/17 Order Info: 0786-1 - CMP Order Info: 3051-0 - T3F Order Info: 3 - TSH Order Info: 2497-12 - FE Order Info: 53424-0 - RA Order Info: 3024-7 - T4F TYPE CODE TESTS RESULT OUT OF RANGE REFERENCE UNITS LAB L501.51264 2.18-3.98 pg/mL Normal FREE T3 2.6 Performed By: #### L100.0100, L101.9900, L500.4050, L501.74989, L501.9520, L503.6150, L505.7010, L506.0400, L503.0105, L506.1000 #### [facility] [address] [facility] [place], [place], [id number] #### L3100.5475 #### [facility] (refer to report for specific site) refer to report for address and phone number THYROID STIM HORMONE Collected: 11/04/2017 Status: F Source: [place] (TSH) 9:40 AM [facility] REPOSITORY Order Comment: Order Date: 11/04/17 Order Info: 0786-1 - CMP Order Info: 3051-0 - T3F Order Info: 6-3 - TSH Order Info: 2497-12 - FE Order Info: 73736-8 - RA Order Info: 3024-7 - T4F TYPE CODE TESTS RESULT OUT OF RANGE REFERENCE UNITS LAB L501.9520 0.358-3.74 uIU/mL Normal TSH 1.59 Performed By: #### L100.0100, L101.9900, L500.4050, L501.42858, L501.9520, L503.6150, L505.7010, L506.0400, L503.0105, L506.1000 #### [facility] [address] [facility] [place], [address] #### L3100.5475 #### [facility] (refer to report for specific site) refer to report for address and phone number IRON Collected: 11/04/2017 Status: F Source: [place] 9:40 AM [facility] REPOSIT[facility] Order Comment: Order Date: 11/04/17 Order Info: 0786-1 - CMP Order Info: 1-0 - T3F Order Info: 3 - TSH Order Info: 2497-12 - FE Order Info: 68202-0 - RA Order Info: 302-7 - T4F TYPE CODE TESTS RESULT OUT OF RANGE REFERENCE UNITS LAB L503.6150 50-170 ug/dL Normal IRON 71 Performed By: #### L100.0100, L101.9900, L500.4050, L501.14497, L501.9520, L503.6150, L505.7010, L506.0400, L503.0105, L506.1000 #### [facility] [address] [facility] [place], [address] #### L3100.5475 #### [facility] (refer to report for specific site) refer to report for address and phone number RHEUMATOID FACTOR Collected: 11/04/2017 Status: F Source: [place] 9:40 AM [facility] REPOSITORY Order Comment: Order Date: 11/04/17 Order Info: 0786-1 - CMP Order Info: 3051-0 - T3F Order Info: 3016-3 - TSH Order Info: 24984 - FE Order Info: 32082-1 - RA Order Info: 302-7 - T4F TYPE CODE TESTS RESULT OUT OF RANGE REFERENCE UNITS LAB L505.7010 <15 IU/mL Normal RHEUMATOID FAC < 10.0 Performed By: #### L100.0100, L101.9900, L500.4050, L501.80526, L501.9520, L503.6150, L505.7010, L506.0400, L503.0105, L506.1000 #### [facility] [address] [facility] [place], [place], [id number] #### L3100.5475 #### [facility] (refer to report for specific site) refer to report for address and phone number T4 FREE DIRECT Collected: 11/04/2017 Status: F Source: [place] 9:40 AM [facility] REPOSITORY Order Comment: Order Date: 11/04/17 Order Info: 0786-1 - CMP Order Info: 3051-0 - T3F Order Info: 3016-3 - TSH Order Info: 2498-4 - FE Order Info: 98010-8 - RA Order Info: 3024-7 - T4F TYPE CODE TESTS RESULT OUT OF RANGE REFERENCE UNITS LAB L506.0400 0.76-1.46 ng/dL Normal T4 FREE 1.01 DIRECT Performed By: #### L100.0100, L101.9900, L500.4050, L501.77379, L501.9520, L503.6150, L505.7010, L506.0400, L503.0105, L506.1000 #### [facility] [address] [facility] [place], [place], [id number] #### L3100.5475 #### [facility] (refer to report for specific site) refer to report for address and phone number VITAMIN B12 Collected: 11/04/2017 Status: F Source: [place] 9:40 AM [facility] REPOSITORY Order Comment: Order Date: 11/04/17 Order Info: 2132-9 - B12 Order Info: 36405-3 - VITD25 TYPE CODE TESTS RESULT OUT OF RANGE REFERENCE UNITS LAB L503.0105 211-911 pg/mL Normal Vitamin B12 880 Performed By: #### L100.0100, L101.9900, L500.4050, L501.65846, L501.9520, L503.6150, L505.7010, L506.0400, L503.0105, L506.1000 #### [facility] [address] [facility] [place], [address] #### L3100.5475 #### [facility] (refer to report for specific site) refer to report for address and phone number VITAMIN D,25 HYDROXY Collected: 11/04/2017 Status: F Source: [place] 9:40 AM [facility] REPOSITORY Order Comment: Order Date: 11/04/17 Order Info: 2132-9 - B12 Order Info: 65512-8 - VITD25 TYPE CODE TESTS RESULT OUT OF REFERENCE UNITS RANGE LAB L506.1000 19.95-100.01 ng/mL Low Vitamin D 16.1 25-OH Result Comment: Vitamin D 25(OH) Status Range Deficiency <20 ng/mL (50nmol/L) Insuffciency 20 - 30 ng/mL (50 - 75 nmol/L) Sufficiency 30 - 100 ng/mL (75 - 250 nmol/L) Toxicity >100 ng/mL (>250 nmol/L) Performed By: #### L100.0100, L101.9900, L500.4050, L501.88023, L501.9520, L503.6150, L505.7010, L506.0400, L503.0105, L506.1000 #### [facility] [address] [facility] [place], [place], [id number] #### L3100.5475 #### [facility] (refer to report for specific site) refer to report for address and phone number ANTINUCLEAR ANTIBODIES Collected: 11/04/2017 Status: F Source: [place] DIRECT 9:40 AM [facility] REPOSITORY Order Comment: Order Date: 11/04/17 Order Info: 0270-1 - DOT TYPE CODE TESTS RESULT OUT OF RANGE REFERENCE UNITS LAB L3100.5475 Negative Normal Negative DOT-DIRECT Result Comment: Performed at: [facility] [id number] Metal Door Assembler: Lee Loja PhD, Phone: [phone] Performed By: #### L100.0100, L101.9900, L500.4050, L501.02731, L501.9520, L503.6150, L505.7010, L506.0400, L503.0105, L506.1000 #### [facility] [facility]. [place], [place], [id number] #### L3100.5475 #### [facility] (refer to report for specific site) refer to report for address and phone number CRP Collected: 11/04/2017 Status: F Source: [place] 9:40 AM [facility] REPOSITORY Order Comment: Order Date: 11/04/17 Order Info: 0786-1 - CMP Order Info: 3051-0 - T3F Order Info: 3016-3 - TSH Order Info: 2498-4 - FE Order Info: 86822-7 - RA Order Info: 3024-7 - T4F TYPE CODE TESTS RESULT OUT OF RANGE REFERENCE UNITS LAB L501.6710 0.0-3.0 mg/L High 4.84 C-REACTIVE PROT Result Comment: C-Reactive Protein (CRP) provides useful information for the diagnosis, therapy and monitoring of inflammatory processes and associated diseases. For the evaluation of Relative Risk for Cardiovascular Disease, a High Sensitivity CRP (HSCRP) should be ordered. Performed By: #### L501.6710 #### [facility] [address] [place] [address], [id number] THYROID PEROXIDASE AB Collected: 11/04/2017 Status: F Source: [place] 9:40 AM [facility] REPOSITORY TYPE CODE TESTS RESULT OUT OF RANGE REFERENCE UNITS LAB L3300.6900 0-34 IU/mL Normal TPO AB 18 6676 Result Comment: Performed at: [facility] [address] [place], [place] [id number] Metal Door Assembler: Lee Loja PhD, Phone: [phone] Performed By: #### L3300.6900 #### [facility] (refer to report for specific site) refer to report for address and phone number Observed: 09/25/2017 Status: F Source: [place] CULTURE, GENITAL 10:00 AM [facility] COMPREHENSIVE REPOSITORY Gram Stain Score = 4 Interpretation: 0-3 Normal, 4-6 Intermediate, 7-10 Positive BV Gram Stain Rare Epithelial cells Rare White Blood Cells No organisms seen Gent Cult Comp Normal vaginal ruddy isolated. No yeast, Gardnerella, Neisseria or beta-hemolytic Streptococcus isolated. 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, [address] Observed: 09/25/2017 Status: F Source: [place] CULTURE, URINE 10:00 AM [facility] REPOSITORY Urine Culture Below infection level. ORGANISM 1: Mixed Gram Pos AND Gram Neg Org [place] Count <1000 Performed By: #### M100.0650 #### [facility] [address] [place], [address] ALLERGIES ALLERGIES DATE TYPE / CODE NAME / CODE REACTION SEVERITY SOURCE 12/26/2009 DRUG METRONIDAZOLE [facility] INGREDI/[address] [place] [id number](SN Repository ED CT) ENCOUNTERS ENCOUNTERS ADMIT/DISCHARGE ACCOUNT ADMITTING ENCOUNTER LOCATION SOURCE NUMBER CLASS 08/27/2018 [id number] [facility] ing:WOBLAB Repository 08/13/2018 [id number] [facility] ing:LABSPEC Repository 07/21/2018 [id number] [facility] ing:MFPLAB Repository 07/18/2018 [id number] [facility] ing:LAB.FUTUR Repository E 05/08/2018/05/08/[id number] Repository 01/29/2018 [id number] [facility] ing:MFPLAB Repository 11/04/2017 [id number] [facility] ing:MFPLAB Repository 09/25/2017 [id number] [facility] ing:LABSPEC Repository PAYERS PAYERS ENCOUNTER GUARANTOR PAYER SUBSCRIBER SOURCE 08/27/2018 RAFIA Padilla Primary EZEQUIEL Gonzalez SHARPJORGE [place] [id number] FIVE Insurance:MEDICAL [place], [place] Number: Repository [address]Yrp: 330 [id number] [phone] () Date:0003-27-16CD [address] [place] [phone]: 08/27/2018 Secondary NOT GIVENUNK [place] Insurance:SELF PAY [facility] Number: Effective Repository Date:2018-08-27 08/13/2018 RAFIA Padilla Primary EZEQUIEL DAHL [place] [id number] FIVE Insurance:MEDICAL [place] Number: Repository [address]Xmt: 330 [id number] [phone] () Date:8998-04-14EO [address] [place] [address]HY: 08/13/2018 Secondary NOT GIVENUNK [place] Insurance:SELF PAY [facility] Number: Effective Repository Date:2018-08-13 07/21/2018 RAFIA Padilla Primary RAFIA Padilla [place] [id number] FIVE Insurance:CARESOURCE [facility] Community POINTS JUST [facility] [id number]: Repository [address]Owh: 330 [id number] [phone] () Date:9323-27-43SM [address] [place] [address]EJ: 07/21/2018 Secondary NOT GIVENUNK [place] Insurance:SELF PAY [facility] Number: Effective Repository Date:2018-07-21 07/18/2018 RAFIA Padilla Primary RAFIA Harrisonoster [id number] FIVE Insurance:CARESOURCE [facility]: Community POINTS JUST [facility] [id number] Number: Repository [address]Ejf: 330 [id number] [phone] () Date:8586-01-67VQ [address] [place] [id number]: 07/18/2018 Secondary NOT GIVENUNK [place] Insurance:SELF PAY [facility] Effective Repository Date:2018-07-03 01/29/2018 Rafia Primary Rafia Balsser79[address] Five Insurance:CARESOURCE GresserDOB: Community Points JUST FOR [facility] [id number] Number: Repository [address]Pah: 330 [id number] [phone] () Date:6051-87-30QL [address] [address]AQ: 01/29/2018 Secondary NOT GIVENUNK [place] Insurance:SELF PAY [facility]: Effective Repository Date:2018-01-29 11/04/2017 Rafia Primary Rafia Balsser[address] Five Insurance:CARESOURCE GresserDOB: Community Points JUST FOR [facility] [id number] Number: Repository [address]Xjk: 330 [id number] [phone] () Date:6058-86-15EN[address] [address]DO: 11/04/2017 Secondary NOT GIVENUNK [place] Insurance:SELF PAY [facility] Number: Effective Repository Date:2017-11-04 09/25/2017 Rafia Primary Rafia [id number] Five Insurance:CARESOURCE ValerianosserDOB: Community Points JUST FOR [id number] [place] Number[facility] Repository [address]Hxh: 330 [id number] [phone] () Date:9695-87-50OD [address] [address]MS: 09/25/2017 Secondary NOT GIVENUNK [place] Insurance:SELF PAY [facility] Number: Effective Repository Date:2017-09-25
== END ==
PROVIDERS: Family Provider Family Medicine; PCP Family Medicine; Visit Provider Obstetrics & Gynecology
DX: Z12.4 Encounter for screening for malignant neoplasm of cervix (principal); Z11.3 Encounter for screening for infections with a predominantly sexual mode of transmission; Z32.01 Encounter for pregnancy test, result positive
CPT/HCPCS: 87491; 87591; 88175; G0145

== ENCOUNTER → 2018-08-27 11:00 | Outpatient (CLI) | payer OTHER, SELFPAY ==
[2018-08-27 11:45] LABS: Absolute Lymphocyte Count 1.67 X10^3/ul (0.83-4.51); Absolute Neutrophil Count 8.5 X10^3/uL (2.0-7.7); Basophil# 0.01 X10^3/uL; Basophil% 0.1 % (0-1); Eosinophil# 0.07 X10^3/uL; Eosinophils% 0.6 % (0-5); Hematocrit 41.1 % (37-47); Hemoglobin 13.9 g/dl (12.0-15.0); Lymphocyte # 1.67 X10^3/ul (4.0); Lymphocyte % 15.1 % (19-41); Mean Corp Hgb Conc 33.8 g/gl (32-36); Mean Corpuscular Hgb 29.8 pg (27.0-32.0); Mean Corpuscular Volume 88.2 fL (81-99); Mean Platelet Vol. 10.7 fl (6.2-12.0); Monocyte% 7.2 % (0-10); Neutrophil % 76.9 % (47-70); Platelet Count 259 K/mm3 (150-450); RBC Distribution Width SD 38.1 fl (35.1-43.9); Red Blood Count 4.66 M/mm3 (4.2-5.4); White Blood Count 11.1 K/mm3 (4.4-11.0)
[2018-08-27 11:46] LABS: COTININE Drug Screen Negative (<200 ng/mL)
[2018-08-27 11:47] LABS: POSITIVE COUNT NO; POSITIVE DIFFERENTIAL NO; POSITIVE MORPHOLOGY NO
[2018-08-27 11:48] LABS: Color, Urine Yellow (Yellow); Glucose, Dipstick Normal (Normal); Ketone-Dipstick Negative (Negative); Leukocyte Esterase-Dipstick 100 /ul (Negative); Nitrite-Dipstick Negative (Negative); Occult Blood-Urine Negative /ul (Negative); Protein-Dipstick 15 mg/dl (Negative); Urine Bilirubin Dipstick Negative (Negative); Urine Clarity Sl. Cloudy (Clear); Urine Urobilinogen 1 mg/dl (Normal); Urine pH 6.5 (5.0 - 8.0)
[2018-08-27 11:54] LABS: Amphetamine Urine VISTA NEGATIVE (<1000 ng/mL); Barbiturate Urine VISTA NEGATIVE (< 200 ng/mL); Benzodiazepine Urine VISTA NEGATIVE (< 200 ng/mL); Cocaine Urine VISTA NEGATIVE (< 300 ng/mL); Ecstacy Urine VISTA NEGATIVE (< 500 ng/mL); Methadone Urine VISTA NEGATIVE (< 300 ng/mL); PCP Urine VISTA NEGATIVE (< 25 ng/mL); THC Urine VISTA NEGATIVE (< 50 ng/mL); Vista UDS pH Range 6
[2018-08-27 12:50] LABS: HIV - WCH Non-Reactive (Nonreactive); Rubella IgG > 500.0 IU/mL
[2018-08-28 04:55] LABS: Prenatal RPR NONREACTIVE (NONREACTIVE)
[2018-08-28 10:01] LABS: HEPATITIS B SURFACE AG Negative (Negative); HSV 1 IgG < 0.91 index (0.00-0.90); HSV 2 IgG < 0.91 index (0.00-0.90); Hep C Antibodies <0.1 s/co ratio (0.0-0.9)
--- OUTSIDE RECORDS SUMMARY | 2018-10-13 06:19 | XMS RPT_ITS ---
:1985 Author Organization OHIP Care Team Providers Name Role Phone Misha Wasserman Attending Unavailable Juan C Marcus Primary Care Unavailable Juan C Marcus Attending Unavailable Juan C Marcus Primary Care Unavailable Juan C Marcus Attending Unavailable Juan C Marcus Primary Care Unavailable Juan C Marcus Attending Unavailable Juan C Marcus Primary Care Unavailable Juan C Marcus Referring Unavailable Juan C Marcus Attending Unavailable Juan C Marcus Primary Care Unavailable Misha Wasserman Attending Unavailable Juan C Marcus Primary Care Unavailable PROBLEMS PROBLEMS DATE TYPE CONDITION / CODE ATTENDING STATUS SOURCE 07/18/2018 Unknown E66.3 - Amrit, Active [place] Overweight / [facility] E66.3(ICD-10) Hospital Repository 07/18/2018 Unknown K90.0 - Celiac Amrit, Active [place] disease / [facility] K90.0(ICD-10) Hospital Repository 07/18/2018 Unknown E55.9 - Vitamin D Amrit, Active [place] deficiency, [facility] unspecified / Hospital E55.9(ICD-10) Repository 05/08/2018 Active Encounter for NA Active [facility] examination for [facility] normal comparison Repository and control in clinical research program / Z00.6(ICD-10) PROCEDURES PROCEDURES No Procedure Records FoundRESULTS RESULTS URINE DRUG SCREEN Collected: 08/27/2018 Status: F Source: [place] (VISTA) 11:03 AM [facility] Order Comment: List of Drugs Taken [...] NEGATIVE Performed By: #### L505.5000, L505.6240 #### [facility] [address] [place], [place], [address] NICOTINE URINE DRUG Collected: 08/27/2018 Status: F Source: [place] SCREEN 11:03 AM [facility] Order Comment: List of Drugs Taken [...] Nicotine. Performed By: #### L505.5000, L505.6240 #### [facility] [address] [facility] [place], [address] CBC W/DIFF, AUTOMATED Collected: 08/27/2018 Status: F Source: [place] 11:03 AM [facility] TYPE CODE TESTS RESULT OUT OF [...] Normal Absolute Lymph 1.67 Performed By: #### L100.0 #### [facility] [address] [place], [address] URINALYSIS, ROUTINE Collected: 08/27/2018 Status: F Source: [place] (DIPSTICK) 11:03 AM [facility] Order Comment: How was Urine Obtained? [...] ESTERASE 100 Performed By: #### L400.2010 #### [facility] [address] [place], [address] THYROID STIM HORMONE Collected: 08/27/2018 Status: F Source: [place] (TSH) 11:03 AM [facility] TYPE CODE TESTS RESULT OUT OF RANGE REFERENCE UNITS LAB L501.9520 0.358-3.74 uIU/mL Normal TSH 0.80 Performed By: #### L501.9520 #### [facility] [address] [place], [address] RUBELLA IGG Collected: 08/27/2018 Status: F Source: [place] 11:03 AM [facility] TYPE CODE TESTS RESULT OUT OF RANGE REFERENCE UNITS LAB L509.4000 IU/mL Normal Rubella IgG > 500.0 Result Comment: Antibody results Interpretation of Immune Status < 5 IU/ml Presumed Non-immune 5 - < 10 IU/ml Equivocal > or = 10 IU/ml Presumed Immune Performed By: #### L509.4000, L3890.6005 #### [facility] [address] [place], [address] HIV - [facility] Collected: 08/27/2018 Status: F Source: [place] 11:03 AM [facility] TYPE CODE TESTS RESULT OUT OF RANGE REFERENCE UNITS LAB L3890.6005 Nonreactive Normal HIV - [facility] Non-Reactive Performed By: #### L509.4000, L3890.6005 #### [facility] [address] [place], [address] T AND S-NO Collected: 08/27/2018 Status: F Source: [place] CHAR[place] W/PNP 11:03 AM [facility] Order Comment: Reason for Type AND Screen/Red Cells: Surgery? N TYPE CODE TESTS RESULT OUT OF RANGE REFERENCE UNITS LAB B10.0800 O Normal BLOOD NEGATIVE TYPE GEL LAB B100.4050 Normal Ab SCREEN NEGATIVE GEL Performed By: #### B100.7550 #### [facility] [address] [place], [address] RPR Collected: 08/27/2018 Status: F Source: [place] 11:03 AM [facility] TYPE CODE TESTS RESULT OUT OF REFERENCE UNITS RANGE LAB L700.5100 NONREACTIVE Normal RPR NONREACTIVE Performed By: #### L700.5100 #### [facility] [address] [place], [address] HEPATITIS B SURFACE Collected: 08/27/2018 Status: F Source: [place] AG 11:03 AM [facility] TYPE CODE TESTS RESULT OUT OF RANGE REFERENCE UNITS LAB L3100.0400 Negative Normal HB Negative SURF AG Result Comment: Performed at: - [facility] [id number] Fleet Service Manager: Lee Loja PhD, Phone: [phone] Performed By: #### L3100.0390, L3100.0625, L3400.1610 #### [facility] (refer to report for specific site) refer to report for address and phone number HEPATITIS C ANTIBODIES Collected: 08/27/2018 Status: F Source: [place] 11:03 AM [facility] TYPE CODE TESTS RESULT OUT OF RANGE REFERENCE UNITS LAB L3100.0650 0.0-0.9 s/co ratio Normal HEP C AB <0.1 Result Comment: Negative: < 0.8 Indeterminate: 0.8 - 0.9 Positive: > 0.9 The CDC recommends that a positive HCV antibody result be followed up with a HCV Nucleic Acid Amplification test (358352). Performed By: #### L3100.0390, L3100.0625, L3400.1610 #### [facility] (refer to report for specific site) refer to report for address and phone number HSV 1 AND 2 IGG Collected: 08/27/2018 Status: F Source: [place] 11:03 AM [facility] TYPE CODE TESTS RESULT OUT OF [...] BY PCR Collected: 08/13/2018 Status: F Source: [place] 10:10 AM [facility] TYPE CODE TESTS RESULT OUT OF RANGE REFERENCE UNITS LAB L8200.2100 Negative Normal Chlam Negative Trac PCR LAB L8200.2200 Negative Normal NG by Negative PCR Performed By: #### L8200.1999 #### [facility] [address] [place], [address] PAP I-G W/RFX HRHPV Collected: 08/13/2018 Status: F Source: [place] 10:10 AM [facility] Order Comment: CYTOLOGY INFORMATION: - CLINICAL INFORMATION: - DATE LMP/MENOPAUSE: 06/23/18 LMP - COLLECTION VIAL: Thin Prep Vial - LITIGATION ATTORNEY SOURCE: CERVICAL/ENDOCERVICAL - COLLECTION TECHNIQUE: BRUSH/SPATULA Specimen Comment: [id number] Specimen Comment: Source.............Cervix;Endocervix Specimen Comment: LMP / Prev Treat...[id number]=[id number] Specimen Comment: No. of containers..01 ThinPrep Vial TYPE CODE TESTS RESULT OUT OF RANGE REFERENCE UNITS LAB L7400.0800 . Normal DIAGN Comment Result Comment: NEGATIVE FOR INTRAEPITHELIAL LESION AND MALIGNANCY. LAB L7400.0900 . Normal ADEQ Comment Result Comment: Satisfactory for evaluation. Endocervical and/or squamous metaplastic cells (endocervical component) are present. LAB L7400.1400 . Normal PERFORM Comment Result Comment: Johanny Davis, Quality Control Analyst (ASCP) LAB L7400.2575 . Normal TEST METHOD [...] no HPV testing was performed. Performed at: [address] [id number] Fleet Service Manager: Apryl Gray MD, Phone: [phone] Performed By: #### L7400.0350 #### [facility] (refer to report for specific site) refer to report for address and phone number THYROID STIM HORMONE Collected: 07/21/2018 Status: F Source: [place] (TSH) 10:09 AM [facility] TYPE CODE TESTS RESULT OUT OF RANGE REFERENCE UNITS LAB L501.9520 0.358-3.74 uIU/mL Normal TSH 1.79 Performed By: #### L501.9520, L506.0400, L503.0105, L509.6000 #### [facility] [address] [facility] [place], [place], [address] #### L3410.2350, L5500.0400 #### [facility] (refer to report for specific site) refer to report for address and phone number T4 FREE DIRECT Collected: 07/21/2018 Status: F Source: [place] 10:09 AM [facility] TYPE CODE TESTS RESULT OUT OF RANGE REFERENCE UNITS LAB L506.0400 0.76-1.46 ng/dL Normal T4 FREE 1.06 DIRECT Performed By: #### L501.9520, L506.0400, L503.0105, L509.6000 #### [facility] [address] [facility] [place], [address] #### L3410.2350, L5500.0400 #### [facility] (refer to report for specific site) refer to report for address and phone number VITAMIN B12 Collected: 07/21/2018 Status: F Source: [place] 10:09 AM [facility] TYPE CODE TESTS RESULT OUT OF REFERENCE UNITS RANGE LAB L503.0105 211-911 pg/mL High Vitamin B12 991 Performed By: #### L501.9520, L506.0400, L503.0105, L509.6000 #### [facility] [address] [facility] [place], [place], [address] #### L3410.2350, L5500.0400 #### [facility] (refer to report for specific site) refer to report for address and phone number CORTISOL SERUM Collected: 07/21/2018 Status: F Source: [place] 10:09 AM [facility] TYPE CODE TESTS RESULT OUT OF RANGE REFERENCE UNITS LAB L509.6000 3.09-22.40 ug/dL Normal CORTISOL 8.10 Result Comment: Adult (AM) 4.30 - 22.40 ug/dL Adult (PM) 3.09 - 16.66 ug/dL Performed By: #### L501.9520, L506.0400, L503.0105, L509.6000 #### [facility] [address] [facility] [place], [place], [address] #### L3410.2350, L5500.0400 #### [facility] (refer to report for specific site) refer to report for address and phone number CELIAC AB,COMPREHENSIVE Collected: 07/21/2018 Status: F Source: [place] 10:09 AM [facility] TYPE CODE TESTS RESULT OUT OF [...] IMMUNO A 121 Result Comment: Performed at: [facility] [id number] Fleet Service Manager: Lee Loja PhD, Phone: [phone] LAB L3410.2900 0-3 U/mL Normal tTG IGA <2 Result [...] By: #### L501.9520, L506.0400, L503.0105, L509.6000 #### [facility] [address] [place], [place], [address] #### L3410.2350, L5500.0400 #### [facility] (refer to report for specific site) refer to report for address and phone number ALLERGEN, RAST FOOD Collected: 07/21/2018 Status: F Source: [place] PROFILE 10:09 AM [facility] TYPE CODE TESTS RESULT OUT OF [...] Normal CHOCOLATE <0.10 Result Comment: Performed at: [address] [id number] Fleet Service Manager: Ginger Ramos MD, Phone: [phone] LAB L5500.0501 Class 0 kU/L Normal EGG, <0.10 WHOLE LAB L5500.1886 . Normal Negative FISH/SHELL MIX Result Comment: Allergens in this mix are: Blue mussel Fish [place] Shrimp Tuna LAB L5500.8100 . Normal RAST COMMENT Comment Result Comment: Levels of Specific IgE Class Description of Class ----- < 0.10 0 Negative 0.10 - 0.31 0/I Equivocal/Low 0.32 - 0.55 I Low 0.56 - 1.40 II Moderate 1.41 - 3.90 III High 3.91 - 19.00 IV Very High 19.01 - 100.00 V Very High >100.00 Very High Performed By: #### L501.9520, L506.0400, L503.0105, L509.6000 #### [facility] [address] [place], [address] #### L3410.2350, L5500.0400 #### [facility] (refer to report for specific site) refer to report for address and phone number BASIC METABOLIC Collected: 07/18/2018 Status: F Source: [place] PROFILE (BMP) 11:10 AM [facility] Order Comment: Order Date: 01/30/18 Order Info: 0667-1 - BMP Order Info: 61379-5 - LIPID TYPE CODE TESTS RESULT OUT [...] Performed By: #### L500.2500, L500.4100, L506.1000 #### [facility] [address] [place], [address] LIPID PROFILE Collected: 07/18/2018 Status: F Source: [place] 11:10 AM [facility] Order Comment: Order Date: 01/30/18 Order Info: 0667-1 - BMP Order Info: 50348-4 - LIPID TYPE CODE TESTS RESULT OUT [...] Performed By: #### L500.2500, L500.4100, L506.1000 #### [facility] [address] [place], [address] VITAMIN D,25 HYDROXY Collected: 07/18/2018 Status: F Source: [place] 11:10 AM [facility] Order Comment: Order Date: 01/30/18 Order Info: 26228-3 - VITD25 TYPE CODE TESTS RESULT OUT OF REFERENCE UNITS RANGE LAB L506.1000 29.95-100.01 ng/mL Low Vitamin D 24.4 25-OH Result Comment: Vitamin D 25(OH) Status Range Deficiency <20 ng/mL (50nmol/L) Insuffciency 20 - 30 ng/mL (50 - 75 nmol/L) Sufficiency 30 - 100 ng/mL (75 - 250 nmol/L) Toxicity >100 ng/mL (>250 nmol/L) Performed By: #### L500.2500, L500.4100, L506.1000 #### [facility] [address] [place], [address] CRP Collected: 07/18/2018 Status: F Source: [place] 11:10 AM [facility] Order Comment: Order Date: 01/30/18 Order Info: 0667-1 - BMP Order Info: 70255-3 - LIPID TYPE CODE TESTS RESULT OUT OF RANGE REFERENCE UNITS LAB L501.6710 0.0-3.0 mg/L High 3.32 C-REACTIVE PROT Result Comment: C-Reactive Protein (CRP) provides useful information for the diagnosis, therapy and monitoring of inflammatory processes and associated diseases. For the evaluation of Relative Risk for Cardiovascular Disease, a High Sensitivity CRP (HSCRP) should be ordered. Performed By: #### L501.6710 #### [facility] [address] [place], [address] PROGRESS Observed: 05/08/2018 Status: COMPLETED Source: [place] 5:18 PM [facility] RE[facility] HNO ID: [id number] Author: Naseem Brewer LPN Service: (none) Author Type: LICENSED NURSE Type: Progress Notes Filed: 05/08/2018 5:19 PM Note Text: (patient name) is a (age) year old (male/female) patient here for the Dilated Cardiomyopathy Precision Medicine Study (DCM) MRN: x 03/17/2018 IRB #: [id number] Dilated Cardiomyopathy Precision Medicine Study (DCM) Manager Labor Delivery: Dr. Thaddeus Kendall Prosthetic Assistant: Aubrey Brewer 1. Manager Labor Delivery and/or Research Nurse explained the protocol to [...] LPN CNOV Observed: 05/08/2018 Status: COMPLETED Source: [place] 10:00 AM [facility] ([id number]) 1985 F Date Time Provider Department 05/08/18 10:00 AM LAB [address] During your visit today, we recorded the following information about you: Naseem Brewer LPN, LPN 05/08/2018 5:19 PM Signed (patient name) is a (age) year old (male/female) patient here for the Dilated Cardiomyopathy Precision Medicine Study (DCM) MRN: x 03/17/2018 IRB #: [id number] Dilated Cardiomyopathy Precision Medicine Study (DCM) Manager Labor Delivery: Dr. Thaddeus Kendall Prosthetic Assistant: Aubrey Brewer 1. Manager Labor Delivery and/or Research Nurse explained the protocol to [...] Assessed Reason for Visit: Research [293] Cmt: [id number] DCM Primary Visit Diagnosis:Exam for clinical research [Z00.6] [...] 01/29/2018 Status: F Source: [place] 9:28 AM [facility] TYPE CODE TESTS RESULT OUT OF RANGE REFERENCE UNITS LAB L501.6710 0.0-3.0 mg/L High 3.91 C-REACTIVE PROT Result Comment: C-Reactive Protein (CRP) provides useful information for the diagnosis, therapy and monitoring of inflammatory processes and associated diseases. For the evaluation of Relative Risk for Cardiovascular Disease, a High Sensitivity CRP (HSCRP) should be ordered. Performed By: #### L501.6710 #### [place] [facility] [place] [place] [facility] [address] [place], [address] VITAMIN D,25 HYDROXY Collected: 01/29/2018 Status: F Source: [place] 9:28 AM [facility] Order Comment: Order Date: 01/29/18 Order Info: 46106-7 - VITD25 TYPE CODE TESTS RESULT OUT OF RANGE REFERENCE UNITS LAB L506.1000 29.95-100.01 ng/mL Normal Vitamin D 45.3 25-OH Result Comment: Vitamin D 25(OH) Status Range Deficiency <20 ng/mL (50nmol/L) Insuffciency 20 - 30 ng/mL (50 - 75 nmol/L) Sufficiency 30 - 100 ng/mL (75 - 250 nmol/L) Toxicity >100 ng/mL (>250 nmol/L) Performed By: #### L506.1000 #### [facility] [address] [place], [address] CBC W/DIFF, AUTOMATED Collected: 11/04/2017 Status: F Source: [place] 9:40 AM [facility] Order Comment: Order Date: 11/04/17 Order Info: 0184-1 - CBCD Order Info: 82432-0 - SED TYPE CODE TESTS RESULT OUT [...] 1.63 Performed By: #### L100.0100, L101.9900, L500.4050, L501.19608, L501.9520, L503.6150, L505.7010, L506.0400, L503.0105, L506.1000 #### [facility] [address] [facility] [place], [address] #### L3100.5475 #### [facility] (refer to report for specific site) refer to report for address and phone number ERYTHROCYTE SED RATE Collected: 11/04/2017 Status: F Source: [place] 9:40 AM [facility] Order Comment: Order Date: 11/04/17 Order Info: 0184-1 - CBCD Order Info: 50646-1 - SED TYPE CODE TESTS RESULT OUT OF RANGE REFERENCE UNITS LAB L102.0000 0-20 mm/hr Normal SED RATE 8 Performed By: #### L100.0100, L101.9900, L500.4050, L501.57050, L501.9520, L503.6150, L505.7010, L506.0400, L503.0105, L506.1000 #### [facility] [address] [facility] [place], [address] #### L3100.5475 #### [facility] (refer to report for specific site) refer to report for address and phone number COMPREHENSIVE METABOLIC Collected: 11/04/2017 Status: F Source: [facility] 9:40 AM [facility] Order Comment: Order Date: 11/04/17 Order Info: 0786-1 - CMP Order Info: 3051-0 - T3F Order Info: 3016-3 - TSH Order Info: 2498-4 - FE Order Info: 78558-2 - RA Order Info: 3024-7 - T4F [...] 7 Performed By: #### L100.0100, L101.9900, L500.4050, L501.60106, L501.9520, L503.6150, L505.7010, L506.0400, L503.0105, L506.1000 #### [facility] [address] [facility] [place], [address] #### L3100.5475 #### [facility] (refer to report for specific site) refer to report for address and phone number FREE T3 Collected: 11/04/2017 Status: F Source: [place] 9:40 AM [facility] Order Comment: Order Date: 11/04/17 Order Info: 0786-1 - CMP Order Info: 3051-0 - T3F Order Info: 3 - TSH Order Info: 2497-12 - Order Info: 93036-8 - RA Order Info: 7 - T4F TYPE CODE TESTS RESULT OUT OF RANGE REFERENCE UNITS LAB L501.08516 2.18-3.98 pg/mL Normal FREE T3 2.6 Performed By: #### L100.0100, L101.9900, L500.4050, L501.13037, L501.9520, L503.6150, L505.7010, L506.0400, L503.0105, L506.1000 #### [facility] [address] [place] [address]. [place], [address] #### L3100.5475 #### [facility] (refer to report for specific site) refer to report for address and phone number THYROID STIM HORMONE Collected: 11/04/2017 Status: F Source: [place] (TSH) 9:40 AM [facility] Order Comment: Order Date: 11/04/17 Order Info: 0786-1 - CMP Order Info: 3051-0 - T3F Order Info: 3 - TSH Order Info: 2497-12 - FE Order Info: 45595-6 - RA Order Info: 3027 - T4F TYPE CODE TESTS RESULT OUT OF RANGE REFERENCE UNITS LAB L501.9520 0.358-3.74 uIU/mL Normal TSH 1.59 Performed By: #### L100.0100, L101.9900, L500.4050, L501.95209, L501.9520, L503.6150, L505.7010, L506.0400, L503.0105, L506.1000 #### [facility] [address] [facility] [place], [address] #### L3100.5475 #### [facility] (refer to report for specific site) refer to report for address and phone number IRON Collected: 11/04/2017 Status: F Source: [place] 9:40 AM [facility] Order Comment: Order Date: 11/04/17 Order Info: 0786-1 - CMP Order Info: 3051-0 - T3F Order Info: 30163 - TSH Order Info: 2494 - FE Order Info: 44159-5 - RA Order Info: 3027 - T4F TYPE CODE TESTS RESULT OUT OF RANGE REFERENCE UNITS LAB L503.6150 50-170 ug/dL Normal IRON 71 Performed By: #### L100.0100, L101.9900, L500.4050, L501.78470, L501.9520, L503.6150, L505.7010, L506.0400, L503.0105, L506.1000 #### [facility] [address] [place] [address]. [place], [address] #### L3100.5475 #### [facility] (refer to report for specific site) refer to report for address and phone number RHEUMATOID FACTOR Collected: 11/04/2017 Status: F Source: [place] 9:40 AM [facility] Order Comment: Order Date: 11/04/17 Order Info: 0786-1 - CMP Order Info: 3051-0 - T3F Order Info: 3016-3 - TSH Order Info: 24984 - FE Order Info: 58448-3 - RA Order Info: 3027 - T4F TYPE CODE TESTS RESULT OUT OF RANGE REFERENCE UNITS LAB L505.7010 <15 IU/mL Normal RHEUMATOID FAC < 10.0 Performed By: #### L100.0100, L101.9900, L500.4050, L501.21879, L501.9520, L503.6150, L505.7010, L506.0400, L503.0105, L506.1000 #### [facility] [address] [place] [address]. [place], [address] #### L3100.5475 #### [facility] (refer to report for specific site) refer to report for address and phone number T4 FREE DIRECT Collected: 11/04/2017 Status: F Source: [place] 9:40 AM [facility] Order Comment: Order Date: 11/04/17 Order Info: 0786-1 - CMP Order Info: 3051-0 - T3F Order Info: 3016-3 - TSH Order Info: 2498-4 - FE Order Info: 62357-4 - RA Order Info: 3024-7 - T4F TYPE CODE TESTS RESULT OUT OF RANGE REFERENCE UNITS LAB L506.0400 0.76-1.46 ng/dL Normal T4 FREE 1.01 DIRECT Performed By: #### L100.0100, L101.9900, L500.4050, L501.82940, L501.9520, L503.6150, L505.7010, L506.0400, L503.0105, L506.1000 #### [facility] [address] [place] [address]. [place], [address] #### L3100.5475 #### [facility] (refer to report for specific site) refer to report for address and phone number VITAMIN B12 Collected: 11/04/2017 Status: F Source: [place] 9:40 AM [facility] Order Comment: Order Date: 11/04/17 Order Info: 2132-9 - B12 Order Info: 81271-3 - VITD25 TYPE CODE TESTS RESULT OUT OF RANGE REFERENCE UNITS LAB L503.0105 211-911 pg/mL Normal Vitamin B12 880 Performed By: #### L100.0100, L101.9900, L500.4050, L501.32237, L501.9520, L503.6150, L505.7010, L506.0400, L503.0105, L506.1000 #### [facility] [address] [place] [address], [address] #### L3100.5475 #### [facility] (refer to report for specific site) refer to report for address and phone number VITAMIN D,25 HYDROXY Collected: 11/04/2017 Status: F Source: [place] 9:40 AM [facility] Order Comment: Order Date: 11/04/17 Order Info: 2132-9 - B12 Order Info: 42096-9 - VITD25 TYPE CODE TESTS RESULT OUT OF REFERENCE UNITS RANGE LAB L506.1000 19.95-100.01 ng/mL Low Vitamin D 16.1 25-OH Result Comment: Vitamin D 25(OH) Status Range Deficiency <20 ng/mL (50nmol/L) Insuffciency 20 - 30 ng/mL (50 - 75 nmol/L) Sufficiency 30 - 100 ng/mL (75 - 250 nmol/L) Toxicity >100 ng/mL (>250 nmol/L) Performed By: #### L100.0100, L101.9900, L500.4050, L501.30515, L501.9520, L503.6150, L505.7010, L506.0400, L503.0105, L506.1000 #### [facility] [address] [place] [address], [address] #### L3100.5475 #### [facility] (refer to report for specific site) refer to report for address and phone number ANTINUCLEAR ANTIBODIES Collected: 11/04/2017 Status: F Source: [place] DIRECT 9:40 AM [facility] Order Comment: Order Date: 11/04/17 Order Info: 0270-1 - DOT TYPE CODE TESTS RESULT OUT OF RANGE REFERENCE UNITS LAB L3100.5475 Negative Normal Negative DOT-DIRECT Result Comment: [facility] [id number] Fleet Service Manager: Lee Loja PhD, Phone: [phone] Performed By: #### L100.0100, L101.9900, L500.4050, L501.43464, L501.9520, L503.6150, L505.7010, L506.0400, L503.0105, L506.1000 #### [facility] [address] [place], [place], [address] #### L3100.5475 #### [facility] (refer to report for specific site) refer to report for address and phone number CRP Collected: 11/04/2017 Status: F Source: [place] 9:40 AM [facility] HE[facility] - [place] [place] REPOSITORY Order Comment: Order Date: 11/04/17 Order Info: [id number] - CMP Order Info: 3051-0 - T3F Order Info: 3016-3 - TSH Order Info: 2498-4 - FE Order Info: [id number] - RA Order Info: 3024-7 - T4F [...] be ordered. Performed By: #### [id number] #### [facility] [address] [place], [place], [address] THYROID PEROXIDASE AB Collected: 11/04/2017 Status: F Source: [place] 9:40 [facility] REPOSITORY TYPE CODE TESTS RESULT OUT OF RANGE REFERENCE UNITS LAB L3300.6900 0-34 IU/mL Normal TPO AB 18 [id number] Result Comment: Performed at: [facility] [address] [id number] Fleet Service Manager: Lee Loja PhD, Phone: [phone] Performed By: #### L3300.6900 #### [facility] (refer to report for specific site) refer to report for address and phone number ALLERGIES ALLERGIES DATE TYPE / CODE NAME / CODE REACTION SEVERITY SOURCE 12/26/2009 DRUG METRONIDAZOLE [facility]/[address] [facility] [id number](SNOM Repository ED CT) ENCOUNTERS ENCOUNTERS ADMIT/DISCHARGE ACCOUNT ADMITTING ENCOUNTER LOCATION SOURCE NUMBER CLASS 08/27/2018 [id number] [facility] ing:WOBLAB Repository 08/13/2018 [id number] [facility] ing:LABSPEC Repository 07/21/2018 [id number] [facility] ing:MFPLAB Repository 07/18/2018 [id number] [facility] ing:LAB.FUTUR Repository E 05/08/2018/05/08/[id number] Repository 01/29/2018 [id number] [facility] ing:MFPLAB Repository 11/04/2017 [id number] [facility] ing:MFPLAB Repository PAYERS PAYERS ENCOUNTER GUARANTOR PAYER SUBSCRIBER SOURCE 08/27/2018 LANRE Randy Primary EZEQUIEL Gastelum [id number] FIVE Insurance:[place], [place] Number: Repository [address]Jlp: 330 [id number] [phone] () Date:[id number] [address], [place] [address]UN: 08/27/2018 Secondary NOT GIVENUNK [place] Insurance:SELF PAY [facility] Number: Effective Repository Date:2018-08-27 08/13/2018 LANRE Randy Primary EZEQUIEL Gastelum [id number] FIVE Insurance:[place] Number: Repository [address]Qwt: 330 [id number] [phone] () Date:2002-37-37GO [address] [place] [address]AN: 08/13/2018 Secondary NOT GIVENUNK [place] Insurance:SELF PAY [facility] Number: Effective Repository Date:2018-08-13 07/21/2018 LANRE Randy Primary LANRE Gastelum [id number] FIVE Insurance:SREE JACOBSENB: [facility] [id number] Number: Repository [address]Yro: 330 [id number] [phone] (HP) Date:[id number] [address] [address]QB: 07/21/2018 Secondary NOT GIVENUNK [place] Insurance:SELF PAY [facility] Number: Effective Repository Date:2018-07-21 07/18/2018 LANRE Padilla Primary LANRE [id number] FIVE Insurance:CARESOURCE GRESSERDOB: Community POINTS JUST FOR [facility] [id number] Number: Repository [address]Zhd: 330 [id number] [phone] () Date:[id number] [address] [address]IL: 07/18/2018 Secondary NOT GIVENUNK [place] Insurance:SELF PAY [facility] Number: Effective Repository Date:2018-07-03 01/29/2018 Lanre Primary Lanre [id number] Five Insurance:CARESOURCE GresserDOB: Community Points JUST FOR [facility] [id number] Number: Repository [id number]: 330 [id number] [phone] () Date:2845-85-35LL [address] [address]LP: 01/29/2018 Secondary NOT GIVENUNK [place] Insurance:SELF PAY [facility] Number: Effective Repository Date:2018-01-29 11/04/2017 Lanre Primary Lanre [id number] Five Insurance:CARESOURCE GresserDOB: Community Points JUST FOR [facility] [id number] Number: Repository [id number]: 330 [id number] [phone] () Date:2881-41-34WY [address] [address]OB: 11/04/2017 Secondary NOT GIVENUNK [place] Insurance:SELF PAY [facility] Number: Effective Repository Date:2017-11-04
== END ==
PROVIDERS: Family Provider Family Medicine; PCP Family Medicine; Visit Provider Obstetrics & Gynecology
DX: Z34.81 Encounter for supervision of other normal pregnancy, first trimester (principal)
CPT/HCPCS: 36415; 80307; 81002; 84443; 85025; 86695; 86696; 86703; 86762; 86803; 87340

== ENCOUNTER → 2018-10-29 10:14 | Outpatient (CLI) | payer OTHER, SELFPAY ==
[2018-11-06 12:33] LABS: CF, Screen Comment: (.)
== END ==
PROVIDERS: Family Provider Family Medicine; PCP Family Medicine; Visit Provider Obstetrics & Gynecology
DX: Z34.90 Encounter for supervision of normal pregnancy, unspecified, unspecified trimester (principal)
CPT/HCPCS: 36415; 81220

== ENCOUNTER → 2019-01-05 09:02 | Outpatient (CLI) | payer OTHER, SELFPAY ==
[2019-01-05 10:42] LABS: Hematocrit 36.9 % (37-47); Hemoglobin 12.2 g/dl (12.0-15.0); Mean Corp Hgb Conc 33.1 g/gl (32-36); Mean Corpuscular Hgb 29.7 pg (27.0-32.0); Mean Corpuscular Volume 89.8 fL (81-99); Mean Platelet Vol. 10.8 fl (6.2-12.0); Platelet Count 223 K/mm3 (150-450); RBC Distribution Width CV 12.6 % (11.6-14.6); Red Blood Count 4.11 M/mm3 (4.2-5.4); White Blood Count 12.9 K/mm3 (4.4-11.0)
[2019-01-05 10:43] LABS: Glucose Challenge Gest 1H 50g 89 mg/dL (70-140)
[2019-01-05 10:46] LABS: Scan Indicated on CBC? Y/N NO
== END ==
PROVIDERS: Visit Provider Obstetrics & Gynecology
DX: Z34.83 Encounter for supervision of other normal pregnancy, third trimester (principal)
CPT/HCPCS: 36415; 82950; 85027; 86850

== ENCOUNTER → 2019-03-02 | Outpatient (CLI) | payer OTHER, SELFPAY | END | disposition home or self-care (01) | LOC: LABSPEC 13:31 | PROVIDERS: Visit Provider Obstetrics & Gynecology | DX: Z36.85 Encounter for antenatal screening for Streptococcus B (principal) | CPT/HCPCS: 87081 ==

== ENCOUNTER 2019-03-25 10:05 | Inpatient (IN) | payer OTHER, SELFPAY ==
[2019-03-25] VITALS (17 sets, daily range): BP systolic 102–140; BP diastolic 52–76; PULSE 82–121; RESP 16–18; TEMP 36.2–37; O2SAT 94–100; BMI 32.6
[2019-03-25] MEDS: Lactated Ringers 1,000 ML 999 ML IV (10:40)
[2019-03-25 11:02] LABS: Absolute Lymphocyte Count 1.21 X10^3/ul (0.83-4.51); Absolute Neutrophil Count 8.1 X10^3/uL (2.0-7.7); Basophil# 0.01 X10^3/uL; Basophil% 0.1 % (0-1); Eosinophil# 0.04 X10^3/uL; Eosinophils% 0.4 % (0-5); Hemoglobin 11.1 g/dl (12.0-15.0); Lymphocyte # 1.21 X10^3/ul (4.0); Lymphocyte % 11.9 % (19-41); Mean Corp Hgb Conc 32.6 g/gl (32-36); Mean Corpuscular Hgb 27.3 pg (27.0-32.0); Mean Corpuscular Volume 83.5 fL (81-99); Mean Platelet Vol. 10.7 fl (6.2-12.0); Monocyte# 0.82 X10^3/uL; Monocyte% 8.1 % (0-10); Neutrophil # 8.08 X10^3/uL (2.7-7.7); Neutrophil % 79.3 % (47-70); Platelet Count 199 K/mm3 (150-450); RBC Distribution Width CV 13.1 % (11.6-14.6); RBC Distribution Width SD 39.9 fl (35.1-43.9); Red Blood Count 4.07 M/mm3 (4.2-5.4); White Blood Count 10.2 K/mm3 (4.4-11.0)
[2019-03-25 11:08] LABS: POSITIVE COUNT NO; POSITIVE DIFFERENTIAL NO; POSITIVE MORPHOLOGY NO
[2019-03-25 11:11] LABS: International Normalized Ratio 1.1; Prothrombin Time (Protime)PT. 13.5 SECONDS (11.7-14.9)
[2019-03-25] MEDS: Lactated Ringers 1,000 ML 150 ML IV (11:32)
[2019-03-25] MEDS: Sodium Citrate/Citric Acid 30 ML UDC PO (11:55)
[2019-03-25] MEDS: Cefazolin 2 GM in 0.9% Normal Saline 100 ML IV (12:20)
--- NOTE | 2019-03-25 12:24 | OP.PCM_ITS ---
Delivery Classification: Scheduled Final MISA: 03/30/19 Final MISA Source: US <20 weeks Gestational age: 39 Weeks and 2 Days Indications: Prior Description of Procedure: Surgeon: Mumtaz Suresh MD, FACOG Clinical Account Executive: VLADIMIR Clement Anesthesia: Jade Griffin CRNA Anesthesia: Spinal with Duramorph Pre-op Diagnosis: Prior Section Post-Op Diagnosis: Prior Section Procedure: Repeat Low Transverse Cervical Caesarean Section Findings: Viable female with Apgars of 9/9 in an occiput anterior presentation with clear amniotic fluid and normal three-vessel placenta. Indication: This is a 33-year-old who presents for her second at 39+ weeks gestation. care has otherwise been uneventful. The patient has been counseled regarding the risk and indications of this procedure including the possibility of bleeding infection and injury to surrounding structures such as bowel bladder. All questions were answered. Procedure: Patient was taken to the operating room where after spinal anesthesia was placed, the patient was prepped and draped in usual sterile fashion and a Bahena catheter was placed. The abdomen was entered through the patient's prior Pfannenstiel incision and peritoneum was entered bluntly. After developing a bladder flap on the lower uterine segment a low transverse incision was made on the uterus and head was easily delivered onto the operative field the nose mouth and oropharynx were bulb suctioned. Subsequently a viable female infant was born with Apgars of 9/9. The infant was noted to cry move all extremities vigorously on the operative field. The umbilical cord was doubly clamped and ligated and infant handed to the nursery personnel who were present for the delivery. Placenta was delivered and noted to be 3 vessels and normal. Uterus was exteriorized and remaining placental tissue was removed. The uterus was then closed in 2 layers first with running locked 0 Vicryl suture followed by a second imbricating layer with 0 Vicryl suture. 0 Vicryl suture was then used in a horizontal mattress interrupted fashion to affect final hemostasis of the uterine incision line. Normal fallopian tubes and ovaries were visualized and the uterus was returned to the pelvis. Hemostasis was noted and rectus abdominis muscles were reapproximated in the midline with interrupted Number 0 Vicryl suture in a horizontal mattress fashion. Fascia was closed with running Number 1 PDS Strata fix suture. Subcutaneous tissue was irrigated with copious amounts of saline solution and then closed with running 3-0 Vicryl suture. Skin was closed with 4-0 monocryl suture in a running subcuticular fashion. Steri strips, telfa, and tape were placed across the incision. The patient tolerated the procedure well and was taken to the recovery room in satisfactory condition. Sponge, needle, and instrument counts were all reportedly correct. EBL was less than 500 cc. Ancef 2 gms IV was given prior to the procedure. Spicemen to Pathology: None Complications: None Amniotic Fluid Description: Clear Placenta Disposition: [facility] Drain: Bahena to straight drain Fluids Replaced: Crystalloid Cord Entanglement: None Cord Vessel Description: 3 Vessels Esitmated Blood Loss (ml): 500 cc Infant Gender: Female (1 minute): 9 (5 minute): 9 Pre-op Antibiotic Given: Ancef 2 grams IV x1 Pt instructed on risks of surgery: Bleeding, Infection, Injury to surrounding structure(s) including bowel and bladder Complications: None - Admit VTE Documentation VTE Present on Admission: Yes VTE Mechan Device Prophylaxis: SCD's VTE Pharm Prophylaxis ordered?: No Reason prophylaxis not ordered:: Treatment Not Indicated
[2019-03-25] MEDS: Oxytocin 30 units/NS 500 ml 30 UNITS/500 ML IV.SOLN 167 UNITS IV (12:35)
--- NOTE | 2019-03-25 13:18 | DCINST_ITS ---
Discharge Diet: No Restrictions Discharge Activity: May not drive while taking narcotic pain medications., May Shower, May Take a Tub Bath May resume sexual activity in: 4-6 weeks Lifting Restrictions: 20 pounds Additional Activity Instructions:: Nothing in the vagina for 4-6 weeks. You may return to work/school in 6 weeks. Call your doctor if your incision/area has: Continuous Slow Oozing, Sudden Increased Bleeding, Increased Pain/ Swelling, Increased Redness, Foul Smelling Discharge Call your doctor if you observe: Fever of 101 or Higher Additional Instructions: If you experience any of the following, contact your healthcare provider. * Bleeding that soaks a pad every hour for 2 hours * Unrelieved incision or abdominal pain * Swelling, redness, discharge or bleeding from your incision or episiotomy site * Your incision begins to separate * Problems urinating (including inability to urinate or burning while urinating). * Visual changes * Severe headache * Flu-like symptoms * Pain or redness in one of both of your breasts * Pain, warmth, tenderness or swelling in your legs, especially the calf area * Frequent nausea and vomiting * Symptoms of depression or anxiety If you experience any of the following, call 911 or go to the nearest Emergency Room. * Chest pain * Problems breathing * Seizure activity * Partial or complete paralysis of a body part, slurred speech, weakness or drooping of the face, or a sudden inability to walk or hold your balance Allergies/Adverse Reactions: Allergies metronidazole [From Flagyl] Adverse Reaction (Verified 03/25/19 10:46) Nausea Medications to take at Discharge Docusate Sodium [Colace] 100 mg PO BID PRN PRN #60 cap 03/25/19 Oxycodone [Oxyir] 5 mg PO Q6H PRN PRN 7 Days #20 tab 03/25/19 Valacyclovir HCl [Valacyclovir] 500 mg PO DAILY 03/25/19 The following prescriptions were given: Docusate Sodium [Colace] 100 mg PO BID PRN PRN #60 cap PRN Reason: Constipation Prescription Printed Oxycodone [Oxyir] 5 mg PO Q6H PRN PRN 7 Days #20 tab PRN Reason: Severe Pain () Prescription Printed Follow-Up: Call to make an appointment with your doctor for an incision check in 1-2 weeks. You will also need a 6 week post- follow up appointment. Test results from this visit will be discussed in further detail at your follow- up appointment, if applicable. Please Follow Up With: Mumtaz Suresh MD - [phone] When: Call to make an appointment for an incision check in 2 weeks. Primary Care Physician: Tomas Marcus MD [Primary Care Provider] -
[2019-03-25] MEDS: Lactated Ringers 1,000 ML 100 ML IV ×2 (14:27→23:42)
[2019-03-25] MEDS: Ketorolac 15 MG/ML Vial 30 MG IV (18:21)
[2019-03-25] MEDS: Cefazolin 1 GM/50 ML BAG IV (20:27)
[2019-03-25] MEDS: Acyclovir 200 MG Capsule PO (22:41)
--- NOTE | 2019-03-25 22:45 | NURSING ---
2245- Pt. roberts catheter emptied for 200cc of solange urine. This RN received in report that catheter was last emptied at 1345. This puts pt's output to about 33.3cc/hr. Pt. encouraged to drink water and this RN will re-evaluate around midnight to see if pt. can receive toradol.
[2019-03-26] VITALS (9 sets, daily range): BP systolic 92–112; BP diastolic 48–69; PULSE 82–100; RESP 16–18; TEMP 36.5–37.1; O2SAT 94–97
--- NOTE | 2019-03-26 | NURSING ---
Pt. has had an additional 50cc of urine solange output since 2244. Urinary output is now 40cc/hr. Fundus firm and midline at u-1 with scant to small bleeding. Toradol will be given.
[2019-03-26] MEDS: Ketorolac 15 MG/ML Vial 30 MG IV ×5 (00:01→23:51)
[2019-03-26] MEDS: Acetaminophen 500 MG Tablet 1000 MG PO (04:18)
[2019-03-26] MEDS: Cefazolin 1 GM/50 ML BAG IV (04:20)
[2019-03-26 06:27] LABS: Hematocrit 27.4 % (37-47); Hemoglobin 8.8 g/dl (12.0-15.0); Mean Corp Hgb Conc 32.1 g/gl (32-36); Mean Corpuscular Hgb 27.5 pg (27.0-32.0); Mean Corpuscular Volume 85.6 fL (81-99); Mean Platelet Vol. 10.7 fl (6.2-12.0); Platelet Count 154 K/mm3 (150-450); RBC Distribution Width CV 13.1 % (11.6-14.6); RBC Distribution Width SD 39.2 fl (35.1-43.9); White Blood Count 9.6 K/mm3 (4.4-11.0)
[2019-03-26 06:28] LABS: Scan Indicated on CBC? Y/N NO
[2019-03-26] MEDS: 0.9% Saline Lock 10 ML Syringe IV ×4 (13:33→23:52)
--- NOTE | 2019-03-26 17:31 | PCM.PN.OB ---
Subjective: POD#1 repeat C/S Late entry from AM rounds Doing well. Pain control adequate. Breast feeding. - Physical Exam General: Alert, Oriented x3, Cooperative, No apparent distress HEENT: Atraumatic, EOMI Neck: Supple Abdomen: Soft - NT. At 2 cm inferior to umbilicus Skin: Incision - incision (paper tape and telfa) CDI. Neurological: Cranial nerves II-XII grossly intact Psych/Mental Status: Normal Affect Vital Signs Temp Pulse Resp BP Pulse Ox 97.7 F L 96 16 105/63 97 /09/02 13:30 03/26/19 13:30 03/26/19 13:30 03/26/19 13:30 03/26/19 10:00 Oxygen Delivery Method Room Air Weight: 86.364 kg Body Mass Index (BMI) 32.6 Intake and Output for Last 24 Hours 03/24/19//03/26/19 23:59 23:59 23:59 Intake Total 2481 / 2657 913 / 913 Output Total 575 / 625 725 / 725 Balance 1906 / 2032 188 / 188 Laboratory Tests Past 24 Hrs 03/26/19 06:15 WBC 9.6 RBC 3.20 L Hgb 8.8 L Hct 27.4 L MCV 85.6 MCH 27.5 MCHC 32.1 RDW 13.1 RDW Differential 39.2 Plt Count 154 MPV 10.7 Medical Necessity - Tobacco Use Smoking Status: Former smoker Assessment/Plan POD#1 Repeat C/S Stable postop Incision CDI. AVSS and pain control adequate. Increase diet and activity as tolerated. Begin po meds. D/C roberts for voiding trial. May remove dressing if elects shower today. S/L IV for continued toradol Continue routine care Postoperative, acute blood loss anemia superimposed on anemia (iron deficiency) of Begin ferrous sulfate bid. Continue PNV.
[2019-03-26] MEDS: Senna/Docusate Sodium 1 Tablet PO (20:07)
[2019-03-27 02:00] VITALS: BP 110/65; PULSE 80; RESP 16; TEMP 36.8
[2019-03-27] MEDS: 0.9% Saline Lock 10 ML Syringe IV ×3 (05:59→12:26)
[2019-03-27] MEDS: Ketorolac 15 MG/ML Vial 30 MG IV ×2 (05:59→12:27)
--- NOTE | 2019-03-27 08:01 | PCM.PN.OB ---
Subjective: POD#2 Repeat C/S Doing ok. baby having issues with latching, nursing. would like to stay today. - Physical Exam General: Alert, Oriented x3, Cooperative, No apparent distress HEENT: Atraumatic Neck: Supple Abdomen: Soft - Fundus firm NT at 2 cm inferior to umbilicus Skin: Incision - Cover dressing CDI, removed. Steristrips in place CDI. Psych/Mental Status: Normal Affect Vital Signs Temp Pulse Resp BP Pulse Ox 98.2 F 80 16 110/65 97 03/27/19 02:00 03/27/19 02:00 03/27/19 02:00 03/27/19 02:00 03/26/19 10:00 Oxygen Delivery Method Room Air Weight: 86.364 kg Body Mass Index (BMI) 32.6 Intake and Output for Last 24 Hours //02 04//03/27/19 23:59 23:59 23:59 Intake Total 2481 / 2657 913 / 913 Output Total 575 / 625 1575 / 1575 Balance 1906 / 2 -662 / -662 Medical Necessity - Tobacco Use Smoking Status: Former smoker Assessment/Plan POD#2 Repeat C/S Stable postop Incision CDI. AVSS and pain control adequate. Issues with baby latching, breast feeding. Will plan to stay today to get assistance w/ . Continue routine care Postoperative, acute blood loss anemia superimposed on anemia (iron deficiency) of Begin ferrous sulfate bid. Continue PNV.
[2019-03-27 08:10] VITALS: BP 109/65; PULSE 93; RESP 16; TEMP 37.4; O2SAT 96
[2019-03-27] MEDS: Ferrous Sulfate 325 MG Tablet PO ×2 (12:26→18:00)
[2019-03-27 14:11] VITALS: BP 118/78; PULSE 88; RESP 16; TEMP 36.8; O2SAT 97
[2019-03-27] MEDS: Acetaminophen 500 MG Tablet 1000 MG PO (18:07)
[2019-03-27] MEDS: Ibuprofen 600 MG Tablet PO (19:55)
[2019-03-27] MEDS: Senna/Docusate Sodium 1 Tablet PO (19:55)
[2019-03-27 19:58] VITALS: BP 124/83; PULSE 101; RESP 18; TEMP 37.2
[2019-03-28 02:20] VITALS: BP 115/62; PULSE 84; RESP 18; TEMP 36.6
[2019-03-28] MEDS: Ibuprofen 600 MG Tablet PO ×3 (02:29→16:59)
--- NOTE | 2019-03-28 08:02 | PCM.PN.OB ---
Subjective: POD#3 repeat C/S Doing well. ready for dischg home today. Baby with issues latching. Aksing about activity restrictions, driving, etc. Objective: Sitting up in bed. NAD - Physical Exam General: Alert, Oriented x3, Cooperative, No apparent distress HEENT: Atraumatic, EOMI Neck: Supple Abdomen: Soft - Fundus firm NT at 2 cm inferior to umbilicus Skin: Incision - CDI. Steristrips in place. Psych/Mental Status: Normal Affect Vital Signs Temp Pulse Resp BP Pulse Ox 97.8 F 84 18 115/62 97 // 02:20 03/28/19 02:20 03/28/19 02:20 03/28/19 02:20 03/27/19 14:11 Oxygen Delivery Method Room Air Weight: 86.364 kg Body Mass Index (BMI) 32.6 Intake and Output for Last 24 Hours 07/12/19 //02 04/ 23:59 23:59 23:59 Intake Total 913 / 913 Output Total 1575 / 1575 Balance -662 / -662 Medical Necessity - Tobacco Use Smoking Status: Former smoker Assessment/Plan POD#3 Repeat C/S Stable postop Continued issues with baby latching, breast feeding. Milk in and pumping. Ready to go home today. Dischg home. RTO in 1-2 wk for postop incision check as planned. Postoperative, acute blood loss anemia superimposed on anemia (iron deficiency) of ferrous sulfate bid. Continue PNV.
--- NOTE | 2019-03-28 08:05 | PCM.DC.SUM ---
Discharge Date and Diagnosis Date of Admission: 03/25/19 - Repeat C/S 39 wk EGA Date of Discharge: 03/28/19 - POD#3 Hospital Course and Treatment Operations: - - repeat C/S Summary of Care Provided: The patient is a 34 year old female at 39+ wk presents for repeat C/S. Procedure performed on 03/25/19 Uncomplicated. Daly viable female. Postoperative course uneventful Iron deficiency anemia with superimposed acute blood loss anemia. Started on bid iron for this , to continue one month Dischg home POD#3 stable RTO in 2 and 6 wk for postop checks. - Physical Exam Vital Signs Temp Pulse Resp BP Pulse Ox 97.8 F 84 18 115/62 97 03/28/19 02:20 03/28/19 02:20 03/28/19 02:20 03/28/19 02:20 03/27/19 14:11 Oxygen Delivery Method Room Air Weight: 86.364 kg Body Mass Index (BMI) 32.6 Intake and Output for Last 24 Hours 03/26/19 03/27/19 03/28/19 23:59 23:59 23:59 Intake Total 913 / 913 Output Total 1575 / 1575 Balance -662 / -662 Discharge Diet: No Restrictions Discharge Activity: May not drive while taking narcotic pain medications., May Shower, May Take a Tub Bath May resume sexual activity in: 4-6 weeks Additional Activity Instructions:: Nothing in the vagina for 4-6 weeks. You may return to work/school in 6 weeks. Call your doctor if your incision/area has: Continuous Slow Oozing, Sudden Increased Bleeding, Increased Pain/ Swelling, Increased Redness, Foul Smelling Discharge Call your doctor if you observe: Fever of 101 or Higher Home Medications: Medications to take at Discharge Docusate Sodium [Colace] 100 mg PO BID PRN PRN #60 cap 03/25/19 Oxycodone [Oxyir] 5 mg PO Q6H PRN PRN 7 Days #20 tab 03/25/19 Valacyclovir HCl [Valacyclovir] 500 mg PO DAILY 03/25/19 Ferrous Sulfate 325 mg PO BIDCM #60 tab 03/27/19 Following Prescrptions Were Given to Patient: Docusate Sodium [Colace] 100 mg PO BID PRN PRN #60 cap PRN Reason: Constipation Prescription Printed Ferrous Sulfate 325 mg PO BIDCM #60 tab Prescription Printed Oxycodone [Oxyir] 5 mg PO Q6H PRN PRN 7 Days #20 tab PRN Reason: Severe Pain (6-06/24) Prescription Printed Primary Care Physician: Tomas Marcus MD [Primary Care Provider] - Please Follow Up With: Mumtaz Suresh MD - [phone] When: Call to make an appointment for an incision check in 2 weeks. Medical Necessity - Tobacco Use Smoking Status: Former smoker Meaningful Use Info Meaningful Use Diagnoses (Choose all that apply): None applicable
[2019-03-28 08:56] VITALS: BP 113/82; PULSE 86; RESP 16; TEMP 36.9; O2SAT 97
[2019-03-28] MEDS: Ferrous Sulfate 325 MG Tablet PO ×2 (11:46→17:00)
[2019-03-28 14:56] VITALS: BP 103/74; PULSE 91; RESP 16; TEMP 37.2; O2SAT 96
[2019-03-28] MEDS: Acetaminophen 500 MG Tablet 1000 MG PO (20:53)
[2019-03-28 20:55] VITALS: BP 117/80; PULSE 83; RESP 18; TEMP 36.8
[2019-03-29 02:23] VITALS: BP 112/77; PULSE 81; RESP 18; TEMP 36.7
[2019-03-29] MEDS: Ibuprofen 600 MG Tablet PO ×2 (02:51→12:09)
[2019-03-29] MEDS: Senna/Docusate Sodium 1 Tablet PO (07:32)
[2019-03-29] MEDS: Acetaminophen 500 MG Tablet 1000 MG PO (07:32)
[2019-03-29 08:05] VITALS: BP 121/81; PULSE 77; RESP 16; TEMP 36.7
--- NOTE | 2019-03-29 08:48 | PCM.PN.OB ---
Subjective: POD#4 repeat C/S Doing well. Stayed additional day for nursing issues. Objective: Sitting up in bed pumping. - Physical Exam General: Alert, Oriented x3, Cooperative, No apparent distress HEENT: Atraumatic, EOMI Abdomen: Soft - Fundus firm minimally tender inferior to umbilicus Skin: Incision - Mepilex CDI Psych/Mental Status: Normal Affect Vital Signs Temp Pulse Resp BP Pulse Ox 98.0 F 77 16 121/81 H 96 03/29/ 08:05 03/29/19 08:05 03/29/19 08:05 03/29/19 08:05 03/28/19 14:56 Oxygen Delivery Method Room Air Weight: 86.364 kg Body Mass Index (BMI) 32.6 Medical Necessity - Tobacco Use Smoking Status: Former smoker Assessment/Plan POD#4 Repeat C/S Stable postop Elected to stay until POD#4 for breast feeding issues. Going much better with latching on today. Dischg home. RTO in 1-2 wk for postop incision check as planned. Postoperative, acute blood loss anemia superimposed on anemia (iron deficiency) of ferrous sulfate bid. Continue PNV.
[2019-03-29] MEDS: Ferrous Sulfate 325 MG Tablet PO (12:09)
[2019-03-29 13:15] VITALS: BP 113/80; PULSE 71; RESP 16; TEMP 37
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
== END 2019-03-29 13:45 | disposition home or self-care (01) | DRG 787 ==
PROVIDERS: Admitting Provider Obstetrics & Gynecology; Family Provider Family Medicine; PCP Family Medicine; Referring Provider Obstetrics & Gynecology; Visit Provider Obstetrics & Gynecology
PROC: 10D00Z1 Extraction of Products of Conception, Low, Open Approach (ICD-10-PCS; CPT 59514; principal; 2019-03-25 11:45)
DX: O99.02 Anemia complicating childbirth (principal); D62 Acute posthemorrhagic anemia; Z3A.39 39 weeks gestation of pregnancy; Z37.0 Single live birth; O90.81 Anemia of the puerperium
CPT/HCPCS: 85025; 85027; 85610; 85730; 86850; 86900; 99218; J7120; A4216; G0378; J2405

== ENCOUNTER → 2019-04-29 | Outpatient (CLI) | payer OTHER, SELFPAY ==
[2019-03-25 10:46] VITALS: BMI 32.6
--- NOTE | 2019-04-29 12:59 | BD_ITS ---
STUDY: DUAL ENERGY X-RAY ABSORPTIOMETRY / DXA REASON FOR EXAM: Female, 34 years old. Vitamin D deficiency. Loss of height. TECHNIQUE: Bone Mineral Density (BMD) measurements of lumbar spine and bilateral hips were obtained. COMPARISON: None. FINDINGS: Lumbar Spine (L1-L4): g/cm2 (1.252) / T-score (0.6) / Z-score (0.6) Findings are suggestive of normal bone density with a low fracture risk. Left Femur Total: g/cm2 (0.909) / T-score (-0.8) / Z-score (-0.7) Left Femoral Neck: g/cm2 (0.977) / T-score (-0.4) / Z-score (-0.2) Right Femur Total: g/cm2 (0.971) / T-score (-0.3) / Z-score (-0.2) Right Femoral Neck: g/cm2 (1.062) / T-score (0.2) / Z-score (0.4) BD/Dexa Bone Density Study IMPRESSION: The patient is considered normal as outlined below according to World [employer] Organization (WHO) criteria with a low fracture risk. Reference Information: The T-score is the number of standard deviations above or below the standard which is normal for young adults at their peak bone mineral density. The World Health Organization (WHO) interprets the T-scores as follows: Above -1 Normal bone density Between -1 and -2.5 Osteopenia Equal to / or below -2.5 Osteoporosis As a practical clinical guideline, osteopenia may be graded as follows: Mild -1 through -1.5 Moderate -1.6 through -2.0 Severe -2.1 through -2.4 The Z-score is the number of standard deviations above or below age-matched controls. A Z-score of less than -1.5 would be considered abnormal. References: 1. NIH Osteoporosis and Related Bone Diseases http://www.osteo.org 2. International Society for Clinical Densitometry http://www.iscd.org 3. National Osteoporosis Foundation http://www.nof.org Electronically Signed: Nithin Pierre, at 15:14 EDT , Service support ,
== END | disposition home or self-care (01) ==
LOC: OPBD 12:48
PROVIDERS: Family Provider Family Medicine; PCP Family Medicine; Referring Provider Family Medicine; Visit Provider Family Medicine
DX: E55.9 Vitamin D deficiency, unspecified (principal)
CPT/HCPCS: 77080

== ENCOUNTER → 2019-05-14 | Outpatient (CLI) | payer OTHER, SELFPAY ==
[2019-03-25 10:46] VITALS: BMI 32.6
[2019-05-14 09:49] LABS: Anion Gap 10 (5-15); BUN 14 mg/dL (7-18); BUN/Creat Ratio 15.3 RATIO (10-20); Calcium,Total 8.8 mg/dL (8.5-10.1); Chloride 110 mmol/L (98-107); Creatinine, Serum 0.91 mg/dL (0.55-1.02); EST Glomerular Filtration Rate 75 mL/min (>60); Est Glom Filt Rate - Afr Amer 91 mL/min (>60); Glucose 85 mg/dL (74-106); Sodium Level 146 mmol/L (136-145)
[2019-05-14 10:00] LABS: Vitamin D,25 Hydroxy 17.3 ng/mL (29.95-100.01)
[2019-05-18 15:45] LABS: Endomysial Antibody IgA Negative (Negative)
[2019-05-18 16:05] LABS: Immunoglobulin A 123 mg/dL (87-352); t-Transglutaminase IgA <2 U/mL (0-3)
== END | disposition home or self-care (01) ==
LOC: LAB 09:09
PROVIDERS: Family Provider Family Medicine; PCP Family Medicine; Referring Provider Internal Medicine Gastroenterology; Visit Provider Internal Medicine Gastroenterology
DX: K90.0 Celiac disease (principal)
CPT/HCPCS: 36415; 80048; 82306; 82533; 82784; 83516; 86255

== ENCOUNTER → 2019-06-01 | Outpatient (CLI) | payer OTHER, SELFPAY ==
[2019-03-25 10:46] VITALS: BMI 32.6
[2019-06-01 10:42] LABS: Absolute Neutrophil Count 3.8 X10^3/uL (2.0-7.7); Basophil# 0.02 X10^3/uL; Basophil% 0.3 % (0-1); Eosinophils% 4.3 % (0-5); Hematocrit 43.2 % (37-47); Hemoglobin 13.9 g/dL (12.0-15.0); Lymphocyte % 31.6 % (19-41); Mean Corp Hgb Conc 32.2 g/dL (32-36); Mean Corpuscular Hgb 27.4 pg (27.0-32.0); Mean Platelet Vol. 11.1 fl (6.2-12.0); Monocyte# 0.62 X10^3/uL; Monocyte% 8.9 % (0-10); NRBC Flagged by Analyzer 0 % (0-5); Neutrophil % 54.6 % (47-70); Platelet Count 249 K/mm3 (150-450); RBC Distribution Width CV 12.6 % (11.6-14.6); RBC Distribution Width SD 39.1 fl (35.1-43.9); Red Blood Count 5.08 M/mm3 (4.2-5.4)
[2019-06-01 11:03] LABS: Hemoglobin A1c 5.4 % (4.2-6.3)
[2019-06-01 11:14] LABS: Insulin 6.1 mU/L (2.6-37.6)
[2019-06-01 11:20] LABS: ALB/GLOB Ratio 0.9 RATIO (0.9-2.4); AST(SGOT) 28 U/L (15-37); Alanine Aminotransfer ALT/SGPT 43 U/L (13-56); Albumin, Serum 3.6 g/dL (3.2-5.0); Alkaline Phosphatase 124 U/L (45-117); Anion Gap 7 (5-15); BUN 15 mg/dL (7-18); BUN/Creat Ratio 17.9 RATIO (10-20); Calcium,Total 8.9 mg/dL (8.5-10.1); Chloride 109 mmol/L (98-107); Cholesterol 167 mg/dL (200); Creatinine, Serum 0.84 mg/dL (0.55-1.02); EST Glomerular Filtration Rate 83 mL/min (>60); Est Glom Filt Rate - Afr Amer 101 mL/min (>60); Ferritin 36 ng/mL (8-252); Free T3 2.7 pg/mL (2.18-3.98); Glucose 77 mg/dL (74-106); High Density Lipoprotein 57 mg/dL; Iron 76 ug/dL (50-170); Iron Binding Capacity,Total 344 ug/dL (250-450); Potassium 3.9 mmol/L (3.5-5.1); Protein, Total 7.6 g/dL (6.4-8.2); Sodium Level 143 mmol/L (136-145); T4 Free Direct 1.05 ng/dL (0.76-1.46); Thyroid Stim Hormone (TSH) 1.31 uIU/mL (0.358-3.74); Triglycerides 57 mg/dL; Very Low Density Lipoprotein 11 mg/dL (5-40)
[2019-06-02 12:16] LABS: Thyroid Peroxidase AB 20 IU/mL (0-34)
== END | disposition home or self-care (01) ==
PROVIDERS: Family Provider Family Medicine; PCP Family Medicine; Referring Provider Internal Medicine Endocrinology, Diabetes & Metabolism; Visit Provider Internal Medicine Endocrinology, Diabetes & Metabolism
DX: R53.83 Other fatigue (principal); R63.5 Abnormal weight gain
CPT/HCPCS: 36415; 80053; 80061; 82728; 83036; 83525; 83540; 83550; 84439; 84443; 84481; 85025; 86376

== ENCOUNTER → 2019-06-12 | Outpatient (CLI) | payer OTHER, SELFPAY ==
[2019-03-25 10:46] VITALS: BMI 32.6
[2019-06-14 09:14] LABS: CORTISOL SERUM < 0.50 ug/dL (3.09-22.40)
== END | disposition home or self-care (01) ==
PROVIDERS: Family Provider Family Medicine; PCP Family Medicine; Referring Provider Internal Medicine Endocrinology, Diabetes & Metabolism; Visit Provider Internal Medicine Endocrinology, Diabetes & Metabolism
DX: R63.5 Abnormal weight gain (principal)
CPT/HCPCS: 36415; 82533

== ENCOUNTER → 2019-07-06 09:36 | Outpatient (CLI) | payer OTHER, SELFPAY ==
[2019-03-25 10:46] VITALS: BMI 32.6
[2019-07-06 09:54] VITALS: BP 112/69; PULSE 74; RESP 16; TEMP 36.6; BMI 29.2
[2019-07-06] MEDS: Cosyntropin 0.25 MG Vial IM (10:31)
== END ==
PROVIDERS: Family Provider Family Medicine; PCP Family Medicine; Referring Provider Internal Medicine Endocrinology, Diabetes & Metabolism; Visit Provider Internal Medicine Endocrinology, Diabetes & Metabolism
DX: E27.8 Other specified disorders of adrenal gland (principal)
CPT/HCPCS: 82533; 96372; J0834

== ENCOUNTER → 2021-09-10 10:56 | Outpatient (CLI) | payer BC, SELFPAY ==
[2021-09-10 15:08] LABS: Hemoglobin 13.9 g/dL (12.0-15.0); Mean Corp Hgb Conc 33.1 g/dL (32-36); Mean Corpuscular Hgb 29.4 pg (27.0-32.0); Mean Corpuscular Volume 88.8 fL (81-99); Platelet Count 232 K/mm3 (150-450); RBC Distribution Width SD 39.2 fl (35.1-43.9); Red Blood Count 4.73 M/mm3 (4.2-5.4); White Blood Count 7.7 K/mm3 (4.4-11.0)
[2021-09-10 15:28] LABS: Vitamin D,25 Hydroxy 27.6 ng/mL
[2021-09-10 15:31] LABS: Erythrocyte Sedimentation Rate 6 mm/hr (0-30)
[2021-09-10 15:54] LABS: ALB/GLOB Ratio 0.9 RATIO (0.9-2.4); AST(SGOT) 13 U/L (15-37); Alanine Aminotransfer ALT/SGPT 28 U/L (13-56); Albumin, Serum 3.4 g/dL (3.2-5.0); Alkaline Phosphatase 83 U/L (45-117); Anion Gap 7 (5-15); BUN 10 mg/dL (7-18); BUN/Creat Ratio 17.7 RATIO (10-20); Calcium,Total 8.5 mg/dL (8.5-10.1); Chloride 110 mmol/L (98-107); Creatinine, Serum 0.57 mg/dL (0.55-1.02); EST Glomerular Filtration Rate 129 mL/min (>60); Est Glom Filt Rate - Afr Amer 156 mL/min (>60); Globulin 3.9 g/dL (2.2-4.2); Glucose 81 mg/dL (74-106); Potassium 3.7 mmol/L (3.5-5.1); Protein, Total 7.3 g/dL (6.4-8.2); Sodium Level 142 mmol/L (136-145); Thyroid Stim Hormone (TSH) 1.02 uIU/mL (0.358-3.74)
== END ==
PROVIDERS: PCP Family Medicine; Visit Provider Family Medicine
DX: K90.0 Celiac disease (principal); R53.83 Other fatigue; L40.9 Psoriasis, unspecified; E55.9 Vitamin D deficiency, unspecified
CPT/HCPCS: 36415; 80053; 82306; 84443; 85027; 85652

== ENCOUNTER 2021-09-24 16:04 | Outpatient (CLI) | payer BC, SELFPAY ==
[2021-09-27 10:27] LABS: HPV Reflexed? NOT INDICATED
== END 2021-09-24 23:59 | disposition short-term general hospital (02) ==
LOC: LABSPEC 16:12
PROVIDERS: PCP Family Medicine; Visit Provider Obstetrics & Gynecology
DX: Z12.4 Encounter for screening for malignant neoplasm of cervix (principal)
CPT/HCPCS: 88175; G0145

== ENCOUNTER → 2023-02-11 | Outpatient (CLI) | payer BC, SELFPAY ==
[2023-02-11 11:23] LABS: Absolute Lymphocyte Count 1.83 X10^3/uL (0.83-4.51); Absolute Neutrophil Count 4.7 X10^3/uL (2.0-7.7); Basophil# 0.02 X10^3/uL; Basophil% 0.3 % (0-1); Eosinophil# 0.09 X10^3/uL; Eosinophils% 1.2 % (0-5); Hematocrit 41.1 % (37-47); Hemoglobin 13.4 g/dL (12.0-15.0); Lymphocyte # 1.83 X10^3/ul (0.83-4.51); Lymphocyte % 24.9 % (19-41); Mean Corp Hgb Conc 32.6 g/dL (32-36); Mean Corpuscular Hgb 29.1 pg (27.0-32.0); Mean Corpuscular Volume 89.2 fL (81-99); Mean Platelet Vol. 10.5 fl (6.2-12.0); Monocyte# 0.64 X10^3/uL; Monocyte% 8.7 % (0-10); NRBC Flagged by Analyzer 0 % (0-5); Neutrophil # 4.74 X10^3/uL (2.7-7.7); Neutrophil % 64.6 % (47-70); Platelet Count 218 K/mm3 (150-450); RBC Distribution Width SD 39.3 fl (35.1-43.9); Red Blood Count 4.61 M/mm3 (4.2-5.4); White Blood Count 7.3 K/mm3 (4.4-11.0)
[2023-02-11 12:03] LABS: Vitamin D,25 Hydroxy 42.9 ng/mL
[2023-02-11 12:08] LABS: ALB/GLOB Ratio 0.9 RATIO (0.9-2.4); AST(SGOT) 27 U/L (15-37); Alanine Aminotransfer ALT/SGPT 40 U/L (13-56); Albumin, Serum 3.5 g/dL (3.2-5.0); Alkaline Phosphatase 61 U/L (45-117); Anion Gap 6 (5-15); BUN 12 mg/dL (7-18); BUN/Creat Ratio 19.2 RATIO (10-20); CRP 5.55 mg/L (0.0-3.0); Calcium,Total 8.4 mg/dL (8.5-10.1); Chloride 109 mmol/L (98-107); Cholesterol 158 mg/dL (200); Creatinine, Serum 0.62 mg/dL (0.55-1.02); EST Glomerular Filtration Rate 114 mL/min (>60); Est Glom Filt Rate - Afr Amer 138 mL/min (>60); Ferritin 15 ng/mL (8-252); Globulin 3.8 g/dL (2.2-4.2); Glucose 90 mg/dL (74-106); High Density Lipoprotein 66 mg/dL; Potassium 3.7 mmol/L (3.5-5.1); Protein, Total 7.3 g/dL (6.4-8.2); Sodium Level 141 mmol/L (136-145); Thyroid Stim Hormone (TSH) 1.27 uIU/mL (0.358-3.74); Triglycerides 57 mg/dL; Very Low Density Lipoprotein 11 mg/dL (5-40)
== END | disposition home or self-care (01) ==
PROVIDERS: PCP Family Medicine; Visit Provider Family Medicine
DX: K90.0 Celiac disease (principal); L40.9 Psoriasis, unspecified; Z82.49 Family history of ischemic heart disease and other diseases of the circulatory system; E55.9 Vitamin D deficiency, unspecified
CPT/HCPCS: 36415; 80053; 80061; 82306; 82728; 83525; 84443; 85025; 86140

== ENCOUNTER → 2023-03-10 | Outpatient (CLI) | payer BC, SELFPAY ==
[2023-03-10 18:45] LABS: CRP, High Sensitivity Cardiac 8.42 mg/L
[2023-03-11 11:50] LABS: PTHIN 21.3 pg/mL (18.4-80.1)
[2023-03-12 13:08] LABS: ANTINUCLEAR ANTIBODIES DIRECT Negative (Negative)
== END | disposition home or self-care (01) ==
LOC: MFPLAB 14:39
PROVIDERS: PCP Family Medicine; Visit Provider Family Medicine
DX: R79.82 Elevated C-reactive protein (CRP) (principal); E66.3 Overweight; Z68.28 Body mass index [BMI] 28.0-28.9, adult; Z18.9 Retained foreign body fragments, unspecified material
CPT/HCPCS: 36415; 83970; 86038; 86140; 86141

== ENCOUNTER → 2023-04-04 | Outpatient (CLI) | payer BC, SELFPAY ==
[2023-04-07 14:14] LABS: t-Transglutaminase IgA <2 U/mL (0-3)
== END | disposition home or self-care (01) ==
PROVIDERS: PCP Family Medicine
DX: K90.0 Celiac disease (principal); D50.9 Iron deficiency anemia, unspecified
CPT/HCPCS: 36415; 82784; 83516

== ENCOUNTER → 2023-07-26 | Outpatient (CLI) | payer BC, SELFPAY ==
[2023-07-26 09:39] LABS: Erythrocyte Sedimentation Rate 7 mm/hr (0-30)
[2023-07-26 09:41] LABS: Absolute Lymphocyte Count 1.44 X10^3/uL (0.83-4.51); Absolute Neutrophil Count 5.7 X10^3/uL (2.0-7.7); Basophil# 0.03 X10^3/uL; Basophil% 0.4 % (0-1); Eosinophil# 0.08 X10^3/uL; Hemoglobin 14.1 g/dL (12.0-15.0); Lymphocyte # 1.44 X10^3/ul (0.83-4.51); Lymphocyte % 18.4 % (19-41); Mean Corp Hgb Conc 32.8 g/dL (32-36); Mean Corpuscular Hgb 29.1 pg (27.0-32.0); Mean Corpuscular Volume 88.7 fL (81-99); Mean Platelet Vol. 10.5 fl (6.2-12.0); Monocyte# 0.55 X10^3/uL; NRBC Flagged by Analyzer 0 % (0-5); Neutrophil # 5.68 X10^3/uL (2.7-7.7); Neutrophil % 72.7 % (47-70); Platelet Count 248 K/mm3 (150-450); RBC Distribution Width CV 11.8 % (11.6-14.6); RBC Distribution Width SD 37.7 fl (35.1-43.9); Red Blood Count 4.85 M/mm3 (4.2-5.4); White Blood Count 7.8 K/mm3 (4.4-11.0)
[2023-07-26 10:00] LABS: CRP 4.94 mg/L (0.0-3.0); Ferritin 22 ng/mL (8-252); Prolactin 8.2 ng/mL
[2023-07-26 11:34] LABS: 24HR. Urine Creatinine 1.55 g/24 HR (0.70-1.90)
[2023-08-01 19:07] LABS: Adrenocorticotropic Hormone 10.7 pg/mL (7.2-63.3); Cortisol, Free 24Ur 26 ug/24 hr (6-42); Cortisol, Urinary Free 24 ug/L (Undefined); Lyme Scn Total Ab w/Rflx Negative (Negative); QNTFERON TB Mitogen Value > 10.00 IU/mL (.); QNTFERON TB Nil Value 0 IU/mL (.); QNTFERON TB1+ Ag Value 0.02 IU/mL (.); QNTFERON TB2+ Ag Value 0.02 IU/mL (.); QNTIFERON TB Positive Criteria Negative (Negative)
== END | disposition home or self-care (01) ==
LOC: LAB 08:58
PROVIDERS: PCP Family Medicine; Referring Provider Family Medicine; Visit Provider Family Medicine
DX: R79.82 Elevated C-reactive protein (CRP) (principal); E61.1 Iron deficiency
CPT/HCPCS: 36415; 81050; 82024; 82530; 82533; 82570; 82627; 82728; 84146; 85025; 85652; 86140; 86480; 86618; 82626

== ENCOUNTER → 2023-11-21 | Outpatient (CLI) | payer BC, SELFPAY ==
--- NOTE | 2023-11-21 15:01 | ECHOD_ITS ---
Reason For Study: Family Hx of CM Procedure This was a 2D Doppler, Color Flow transthoracic echocardiogram. Exam performed in department. Left Ventricle Normal LV size. The estimated ejection fraction is 60 %. No evidence for diastolic dysfunction. No regional wall motion abnormalities noted. Right Ventricle Normal RV size. Normal systolic function. Atria The left and right atria are normal. No doppler evidence for ASD. Mitral Valve There is no mitral valve stenosis. Trivial mitral valve insufficiency. Tricuspid Valve There is no tricuspid stenosis. Trivial tricuspid valve insufficiency. Unable to estimate RV systolic pressure due to insufficient tricuspid regurgitant envelope. Aortic Valve Trisinus/trileaflet aortic valve. There is no aortic stenosis. No aortic valve insufficiency. Pulmonic Valve There is no pulmonic valvular stenosis. No pulmonic valve insufficiency. Great Vessels Normal aortic root. Pericardium/Pleural No pericardial effusion. MMode/2D Measurements & Calculations LVIDd: 4.2 cm IVSd: 0.80 cm Ao root diam: 2.4 cm LVIDs: 2.7 cm LVPWd: 0.91 cm RVDd: 2.4 cm FS: 35.3 % LAV(MOD-bp): 26.2 ml LVAd ap4: 21.0 cm2 SV(MOD-sp4): 34.3 ml LAV(MOD-bp) Indexed: 14.2 ml/m2 LVLd ap4: 7.0 cm LAV(MOD-sp2): 26.8 ml EDV(MOD-sp4): 52.8 ml LAV(MOD-sp4): 24.6 ml EDV(sp4-el): 52.9 ml LVAs ap4: 11.2 cm2 LVLs ap4: 5.7 cm ESV(MOD-sp4): 18.5 ml ESV(sp4-el): 18.5 ml EF(MOD-sp4): 64.9 % EF(sp4-el): 65.0 % SV(sp4-el): 34.4 ml LA A4 area: 12.0 cm2 LA dimension(2D): 3.3 cm RA A4 area: 9.3 cm2 TAPSE: 2.6 cm Time Measurements MV dec time: 0.19 sec Doppler Measurements & Calculations MV E max kirt: 101.1 cm/sec Lat Peak E' Kirt: 17.2 cm/sec Med Peak E' Kirt: 13.5 cm/sec MV A max kirt: 65.2 cm/sec E/E' lat: 5.9 E/E' med: 7.5 MV E/A: 1.5 Ao V2 max: 129.2 cm/sec LV V1 max: 115.7 cm/sec MV dec slope: 539.3 cm/sec2 Ao max P.7 mmHg LV V1 max P.4 mmHg Ao V2 mean: 103.4 cm/sec Ao mean P.5 mmHg Ao V2 VTI: 28.0 cm PA V2 max: 90.7 cm/sec TR max kirt: 237.7 cm/sec TR max P.6 mmHg ECHO/Echo Complete Interpretation Summary The estimated ejection fraction is 60 %. No evidence for diastolic dysfunction. Trivial mitral valve insufficiency. Ordering Physician: Emory Horn Referring Physician: Emory Horn Performed By: Juana Turner, SHANE, RVT
== END | disposition home or self-care (01) ==
LOC: CVS 14:59
PROVIDERS: PCP Family Medicine; Referring Provider Family Medicine; Visit Provider Family Medicine
DX: I08.1 Rheumatic disorders of both mitral and tricuspid valves (principal); Z82.49 Family history of ischemic heart disease and other diseases of the circulatory system
CPT/HCPCS: 93306

== ENCOUNTER → 2025-05-12 | Outpatient (CLI) | payer BC, SELFPAY ==
[2025-05-12 16:15] LABS: Hematocrit 41.8 % (37-47); Hemoglobin 14.2 g/dL (12.0-15.0); Immature Granulocytes Count 0.050 X10^3/uL (0.0-0.0); Mean Corp Hgb Conc 34.0 g/dL (32-36); Mean Corpuscular Volume 88.0 fL (81-99); Mean Platelet Vol. 11.0 fl (6.2-12.0); NRBC Flagged by Analyzer 0 % (0-5); Platelet Count 226 K/mm3 (150-450); RBC Distribution Width CV 11.9 % (11.6-14.6); RBC Distribution Width SD 38.1 fl (35.1-43.9); Red Blood Count 4.75 M/mm3 (4.2-5.4); White Blood Count 11.0 K/mm3 (4.4-11.0)
[2025-05-12 17:23] LABS: AST(SGOT) 27 U/L (<=31); Alanine Aminotransfer ALT/SGPT 38 U/L (<=34); Albumin, Serum 4.4 g/dL (3.5-5.0); Alkaline Phosphatase 78 U/L (35-104); Anion Gap 13 (5-15); BUN 16 mg/dL (4-19); BUN/Creat Ratio 20.7 RATIO (10-20); CRP 5.39 mg/L (0.0-3.0); Calcium,Total 9.5 mg/dL (7.6-11.0); Carbon Dioxide 21.3 mmol/L (21.0-32.0); Chloride 104 mmol/L (98-108); Globulin 3.3 g/dL (2.2-4.2); Glucose 88 mg/dL (70-99); Potassium 3.8 mmol/L (3.3-5.1)
[2025-05-17 15:07] LABS: ANTINUCLEAR ANTIBODIES DIRECT Negative (Negative)
== END | disposition home or self-care (01) ==
LOC: MTLAB 13:17
PROVIDERS: PCP Family Medicine; Referring Provider Family Medicine; Visit Provider Family Medicine
DX: R00.2 Palpitations (principal)
CPT/HCPCS: 36415; 80053; 84443; 85025; 86038; 86140